=== PATIENT | male | born 1950 | race American Indian/Alaskan Native ===

== ENCOUNTER 2017-02-12 09:35 | Inpatient (IN) | payer MEDICARE ==
[2017-02-12] MEDS ORDERED: NACL 0.9% 500 ML 500 ML IV ONE (09:48)
[2017-02-12] MEDS ORDERED: TYLENOL PR ONE ×2 (09:53→09:58)
[2017-02-12 10:07] LABS: Basophils % (Auto) 0.5 % (0.0-1.8); Hematocrit 37.6 % (35.5-45.6); Hemoglobin 12.7 gm/dl (11.8-15.2); Mean Corpuscular HGB Conc 34 % (32-34); Mean Corpuscular Hemoglobin 32 pg (28-32); Mean Corpuscular Volume 94 fl (84-94); Platelet Count 193 K/mm3 (140-440); Red Blood Count 4.01 M/mm3 (3.65-5.03); White Blood Count 6.4 K/mm3 (4.5-11.0)
[2017-02-12 10:18] LABS: INR 1.41 (0.87-1.13)
[2017-02-12 10:30] LABS: Albumin 3.1 g/dL (3.9-5); Albumin/Globulin Ratio 0.8 %; Bilirubin,Total 0.7 mg/dL (0.1-1.2); Calcium 8.8 mg/dL (8.4-10.2); Chloride 109.8 mmol/L (98-107); Potassium 4.3 mmol/L (3.6-5.0); Total Protein 7.2 g/dL (6.3-8.2)
[2017-02-12 10:39] LABS: Bilirubin,Urine NEG (Negative); Blood,Urine LG (Negative); Ketones,Urine NEG (Negative); Leukocyte Esterase,Urine MOD (Negative); Nitrite,Urine NEG (Negative); Urobilinogen,Urine < 2.0 mg/dL (<2.0)
--- NOTE | 2017-02-12 10:41 | XRay Report ---
PORTABLE CHEST INDICATION: Possible sepsis. COMPARISON: 05/12/2016 FINDINGS: Portable, frontal chest radiograph now demonstrates right mid to lower lung approximately 8 cm pneumonia extending from the level of the hilum and infrahilar. Mild left retrocardiac hazy opacity also possible. No large pleural effusions or CHF. Mild exaggerated heart size with normal mediastinal contours. Slight aortic knob calcifications. EKG leads. Demineralized bones. CONCLUSION: New basilar pneumonias, right greater than left, as described. Please correlate. Thank you for the opportunity to participate in this patient's care.
[2017-02-12 10:42] LABS: RBC,Urine > 182.0 /HPF (0.0-6.0); WBC,Urine > 182.0 /HPF (0.0-6.0)
[2017-02-12] MEDS ORDERED: ROCEPHIN/NS 1 GM/50 ML 1 GM/50 ML BAG IV ONE (10:46)
[2017-02-12] MEDS ORDERED: ZOSYN/NS 4.5GM/100ML 4.5 GM/100 ML VIAL IV ONE ×2 (11:00→12:00)
[2017-02-12] MEDS ORDERED: LEVAQUIN 750MG/150ML 750 MG/150 ML BAG IV ONE ×2 (11:00→13:07)
--- NOTE | 2017-02-12 11:06 | Emergency Department Report ---
ED Fever HPI - General Chief Complaint: Altered Mental Status Stated Complaint: GENERAL WEAKNESS Time Seen by Provider: 02/12/17 10:16 Source: group home records, other (hospice nurse at the bedside) Exam Limitations: other (dementia) - History of Present Illness Initial Comments: 66 yo male with a past history of dementia (currently on hospice), hypertension , alcohol dependence, anxiety, and malnutrition presents from group home with fever and altered mental status. Patient was started on Bactrim yesterday for UTI and had worse breath sounds on exam as per hospice nurse at the bedside. Patient is unable to provide history of present illness given significant dementia. He does deny pain ED Review of Systems ROS: Stated complaint: GENERAL WEAKNESS Other details as noted in HPI Comment: Unobtainable due to pts medical conditions ED Past Medical Hx - Past Medical History Hx Hypertension: Yes Hx Psychiatric Treatment: Yes (ANXIETY) Hx Dementia: Yes Additional medical history: Alcohol dependence, DVT,ENCEPHALOPATHY, MALNUTRITION , DYSPHAGIA - Surgical History Additional Surgical History: left knee surgery - Social History Smoking Status: Unknown if ever smoked Substance Use Type: Alcohol - Medications Home Medications: Home Medications Medication Instructions Recorded Confirmed Last Taken Type Acetaminophen [Acetaminophen TAB] 650 mg PO Q4H PRN #30 tablet 05/15/16 Unknown Rx Bisacodyl [Dulcolax suppos] 10 mg [place] QDAY PRN #10 supp.rect 05/15/16 02/12/17 Unknown Rx Ipratropium/Albuterol Sulfate 1 ampul IH Q6HR #30 05/15/16 02/12/17 Unknown Rx [DUONEB *Not for PRN Use*] LORazepam [Ativan] 1 mg PO TID PRN #10 tablet 05/15/16 02/12/17 Unknown Rx Lisinopril [Zestril TAB] 10 mg PO QDAY #30 tablet 05/15/16 02/12/17 Unknown Rx Hyoscyamine Sulfate [Hyoscyamine 0.125 mg PO Q4HR PRN 02/12/17 02/12/17 Unknown History Rapdis 0.125 mg] Morphine Sulfate [Morphine Sulfate] 0.5 ml PO Q2H PRN 02/12/17 02/12/17 Unknown History Morphine Sulfate [Morphine Sulfate] 1 ml PO Q2H PRN 02/12/17 02/12/17 Unknown History Sulfamethoxazole/Trimethoprim 1 tab PO BID 02/12/17 02/12/17 Unknown History [Bactrim DS TAB] ED Physical Exam - General Limitations: Altered Mental Status - Other Other exam information: General: Alert in no distress Head exam: Atraumatic, normocephalic Eyes exam: Normal appearance, ENT: dry mucous membrane Neck exam: Normal inspection, full range of motion, no meningismus nontender Respiratory exam: Clear to auscultation bilateral, no wheezes, rales, crackles Cardiovascular: Mild tachycardia regular rhythm Abdomen: Soft, nondistended, and nontender, with normal bowel sounds, no rebound, or guarding Extremity: Full range of motion normal inspection no deformity Back: Normal Inspection, full range of motion, no tenderness Neurologic: Alert, no facial droop, minimally verbal,, equal hand grapple operator and foot dorsiflexed Skin: Warm, dry ED Course Vital Signs 02/12/17 02/12/17 02/12/17 09:39 09:40 09:45 Temperature Pulse Rate 120 H 119 H 116 H Respiratory 26 H 33 H Rate Blood Pressure 107/66 113/70 Blood Pressure [Left] O2 Sat by Pulse 100 79 L 98 Oximetry 02/12/17 02/12/17 02/12/17 09:52 10:00 10:11 Temperature 102.2 F H Pulse Rate 104 H 120 H Respiratory 28 H Rate Blood Pressure 120/70 Blood Pressure [Left] O2 Sat by Pulse 83 L Oximetry 02/12/17 02/12/17 02/12/17 10:15 10:30 10:45 Temperature Pulse Rate 104 H 106 H 106 H Respiratory 28 H 26 H 23 Rate Blood Pressure 122/77 124/72 122/74 Blood Pressure [Left] O2 Sat by Pulse 63 L 97 Oximetry 02/12/17 02/12/17 02/12/17 11:00 11:15 11:30 Temperature Pulse Rate 108 H 107 H 111 H Respiratory 23 24 20 Rate Blood Pressure 114/69 109/71 107/68 Blood Pressure [Left] O2 Sat by Pulse 51 L 98 100 Oximetry 02/12/17 02/12/17 02/12/17 11:44 11:45 12:00 Temperature Pulse Rate 109 H 108 H Respiratory 20 25 H 24 Rate Blood Pressure 97/66 94/63 Blood Pressure [Left] O2 Sat by Pulse 100 99 Oximetry 02/12/17 02/12/1702/12/17 12:15 12:30 12:45 Temperature Pulse Rate 109 H 101 H 94 H Respiratory 25 H 42 H 20 Rate Blood Pressure 100/62 107/61 93/59 Blood Pressure [Left] O2 Sat by Pulse 100 100 Oximetry 02/12/17 02/12/17 02/12/17 13:00 13:15 13:18 Temperature 98.1 F Pulse Rate 100 H 100 H 106 H Respiratory 22 24 21 Rate Blood Pressure 114/67 110/64 Blood Pressure 110/67 [Left] O2 Sat by Pulse 100 98 Oximetry - Consultations Consultation #1: 02/12/17 11:[address] Iqbal patient's PMD. Will consult on case. Requests admission to the hospitalist. ED Medical Decision Making - Lab Data Result diagrams: 02/12/17 09:53 02/12/17 09:53 Lab Results 02/12/17 02/12/17 02/12/17 Range/Units 09:50 09:53 09:53 WBC 6.4 (4.5-11.0) K/mm3 RBC 4.01 (3.65-5.03) M/mm3 Hgb 12.7 (11.8-15.2) gm/dl Hct 37.6 (35.5-45.6) % MCV 94 (84-94) fl MCH 32 (28-32) pg MCHC 34 (32-34) % RDW 15.0 (13.2-15.2) % Plt Count 193 (140-440) K/mm3 Lymph % (Auto) 23.5 (13.4-35.0) % [place] % (Auto) 3.8 (0.0-7.3) % Eos % (Auto) 0.0 (0.0-4.3) % Baso % (Auto) 0.5 (0.0-1.8) % Lymph # 1.5 (1.2-5.4) K/mm3 [place] # 0.2 (0.0-0.8) K/mm3 Eos # 0.0 (0.0-0.4) K/mm3 Baso # 0.0 (0.0-0.1) K/mm3 Seg Neutrophils % 72.2 H (40.0-70.0) % Seg Neutrophils # 4.6 (1.8-7.7) K/mm3 PT 18.0 H (12.2-14.9) Sec. INR 1.41 H (0.87-1.13) VBG pH (7.320-7.420) Sodium (137-145) mmol/L Potassium (3.6-5.0) mmol/L Chloride (98-107) mmol/L Carbon Dioxide (22-30) mmol/L Anion Gap mmol/L BUN (9-20) mg/dL Creatinine (0.8-1.5) mg/dL Estimated GFR ml/min BUN/Creatinine Ratio % Glucose (75-100) mg/dL Lactic Acid (0.7-2.0) mmol/L Calcium (8.4-10.2) mg/dL Total Bilirubin (0.1-1.2) mg/dL AST (5-40) units/L ALT (7-56) units/L Alkaline Phosphatase (35-129) units/L Total Protein (6.3-8.2) g/dL Albumin (3.9-5) g/dL Albumin/Globulin Ratio % Urine Color Red (Yellow) Urine Turbidity Cloudy (Clear) Urine pH 8.0 H (5.0-7.0) Ur Specific [place] 1.021 (1.003-1.030) Urine Protein 100 mg/dl (Negative) mg/dL Urine Glucose (UA) Neg (Negative) mg/dL Urine Ketones Neg (Negative) mg/dL Urine Blood Lg (Negative) Urine Nitrite Neg (Negative) Urine Bilirubin Neg (Negative) Urine Urobilinogen < 2.0 (<2.0) mg/dL Ur Leukocyte Esterase Mod (Negative) Urine WBC (Auto) > 182.0 H (0.0-6.0) /HPF Urine RBC (Auto) > 182.0 (0.0-6.0) /HPF 02/12/17 02/12/17 02/12/17 Range/Units 09:53 09:53 09:53 WBC (4.5-11.0) K/mm3 RBC (3.65-5.03) M/mm3 Hgb (11.8-15.2) gm/dl Hct (35.5-45.6) % MCV (84-94) fl MCH (28-32) pg MCHC (32-34) % RDW (13.2-15.2) % Plt Count (140-440) K/mm3 Lymph % (Auto) (13.4-35.0) % [place] % (Auto) (0.0-7.3) % Eos % (Auto) (0.0-4.3) % Baso % (Auto) (0.0-1.8) % Lymph # (1.2-5.4) K/mm3 [place] # (0.0-0.8) K/mm3 Eos # (0.0-0.4) K/mm3 Baso # (0.0-0.1) K/mm3 Seg Neutrophils % (40.0-70.0) % Seg Neutrophils # (1.8-7.7) K/mm3 PT (12.2-14.9) Sec. INR (0.87-1.13) VBG pH 7.335 (7.320-7.420) Sodium 147 H (137-145) mmol/L Potassium 4.3 (3.6-5.0) mmol/L Chloride 109.8 H (98-107) mmol/L Carbon Dioxide 23 (22-30) mmol/L Anion Gap 19 mmol/L BUN 27 H (9-20) mg/dL Creatinine 1.5 (0.8-1.5) mg/dL Estimated GFR 57 ml/min BUN/Creatinine Ratio 18.00 % Glucose 126 H (75-100) mg/dL Lactic Acid 3.00 H* (0.7-2.0) mmol/L Calcium 8.8 (8.4-10.2) mg/dL Total Bilirubin 0.70 (0.1-1.2) mg/dL AST 13 (5-40) units/L ALT 10 (7-56) units/L Alkaline Phosphatase 84 (35-129) units/L Total Protein 7.2 (6.3-8.2) g/dL Albumin 3.1 L (3.9-5) g/dL Albumin/Globulin Ratio 0.8 % Urine Color (Yellow) Urine Turbidity (Clear) Urine pH (5.0-7.0) Ur Specific [place] (1.003-1.030) Urine Protein (Negative) mg/dL Urine Glucose (UA) (Negative) mg/dL Urine Ketones (Negative) mg/dL Urine Blood (Negative) Urine Nitrite (Negative) Urine Bilirubin (Negative) Urine Urobilinogen (<2.0) mg/dL Ur Leukocyte Esterase (Negative) Urine WBC (Auto) (0.0-6.0) /HPF Urine RBC (Auto) (0.0-6.0) /HPF - EKG Data -: EKG Interpreted by Me (sinus tach rat 103, no semi, no t inv, ant infarct) - EKG Data When compared to previous EKG there are: no significant change (04/2016) - Radiology Data Radiology results: report reviewed (chest x-ray: No bibasilar pneumonias. Right greater than left) - Medical Decision Making Plan to admit patient to hospital for treatment for UTI and pneumonia. Zosyn and Levaquin initiated. Cultures pending. PMD and hospitalist informed - Differential Diagnosis pneumonia, UTI, sepsis, cephalopathy Critical Care Time: No Critical care attestation.: If time is entered above; I have spent that time in minutes in the direct care of this critically ill patient, excluding procedure time. ED Disposition Clinical Impression: UTI (urinary tract infection), Pneumonia, Dementia, Dehydration, Renal insufficiency, Hospice care patient, Sepsis Disposition: [id number] OP ADMIT IP TO THIS HOSP Is pt being admited?: Yes Condition: Stable Time of Disposition: 11:05 (Dr Shay/hosp)
--- NOTE | 2017-02-12 18:45 | History and Physical Report ---
History of Present Illness Date of examination: 02/12/17 Date of admission: 02/12/17 11:17 Chief complaint: 02/12/17 History of present illness: 66 y/o AAM sent from [place] for fever and Altered mental status .Patient with history of HTn and dementia on inpatient hospice with fever of 1 day duration associated with dysuria and incresing sob.Associated with wheezing.Poor PO intake.Parient also very lethargic. No exacerbating or relieving factors. Past History Past Medical History: COPD, hypertension, other (Dysphagia LATISHA Malnutrition) Past Surgical History: Other (L knee surgery) Social history: alcohol abuse, full code, other (Lives in [place] under Hospice) Family history: hypertension Medications and Allergies Allergies Allergy/AdvReac Type Severity Reaction Status Date / Time cheese AdvReac Vomiting Verified 09/25/15 09:41 Home Medications Medication Instructions Recorded Confirmed Last Taken Type Acetaminophen [Acetaminophen TAB] 650 mg PO Q4H PRN #30 tablet 05/15/16 Unknown Rx Bisacodyl [Dulcolax suppos] 10 mg [place] QDAY PRN #10 supp.rect 05/15/16 02/12/17 Unknown Rx Ipratropium/Albuterol Sulfate 1 ampul IH Q6HR #30 05/15/16 02/12/17 Unknown Rx [DUONEB *Not for PRN Use*] LORazepam [Ativan] 1 mg PO TID PRN #10 tablet 05/15/16 02/12/17 Unknown Rx Lisinopril [Zestril TAB] 10 mg PO QDAY #30 tablet 05/15/16 02/12/17 Unknown Rx Hyoscyamine Sulfate [Hyoscyamine 0.125 mg PO Q4HR PRN 02/12/17 02/12/17 Unknown History Rapdis 0.125 mg] Morphine Sulfate [Morphine Sulfate] 0.5 ml PO Q2H PRN 02/12/17 02/12/17 Unknown History Morphine Sulfate [Morphine Sulfate] 1 ml PO Q2H PRN 02/12/17 02/12/17 Unknown History Sulfamethoxazole/Trimethoprim 1 tab PO BID 02/12/17 02/12/17 Unknown History [Bactrim DS TAB] Review of Systems Constitutional: weight loss, fever Ears, nose, mouth and throat: dysphagia, no ear pain, no ear discharge, no tinnitis, no decreased hearing, no nose pain, no nasal congestion, no nasal discharge, no sinus pressure, no sinus pain Cardiovascular: no chest pain, no orthopnea, no palpitations, no rapid/ irregular heart beat, no edema, no syncope, no lightheadedness, no shortness of breath Respiratory: cough, cough with sputum Gastrointestinal: no abdominal pain, no nausea, no vomiting, no diarrhea, no constipation, no change in bowel habits, no hematemesis, no coffee ground emesis Genitourinary Male: dysuria, no discharge, no urinary frequency, no urinary hesitancy, no nocturia, no incontinence, no erectile dysfunction, no genital pain Musculoskeletal: no neck stiffness, no neck pain, no shooting arm pain, no arm numbness/tingling, no low back pain, no shooting leg pain, no leg numbness/ tingling, no redness of joints Integumentary: no rash, no pruritis, no redness, no wounds, no jaundice, no boils, no blisters Neurological: no head injury, no seizures, no syncope Psychiatric: anxiety, memory loss Endocrine: no cold intolerance, no heat intolerance, no polyphagia, no excessive thirst Hematologic/Lymphatic: no easy bruising, no easy bleeding Allergic/Immunologic: no urticaria, no allergic rhinitis, no wheezing Exam - Constitutional Vitals: Temp Pulse Resp BP Pulse Ox 99.8 F H 106 H 18 105/59 100 02/12/17 18:00 02/12/17 18:00 02/12/17 18:00 02/12/17 18:00 02/12/17 18:00 General appearance: Present: no acute distress, well-nourished - EENT Eyes: Present: PERRL ENT: hearing intact, clear oral mucosa - Neck Neck: Present: supple, normal ROM - Respiratory Respiratory effort: normal Respiratory: bilateral: diminished, rhonchi - Cardiovascular Heart rate: 90 Rhythm: regular Heart Sounds: Present: S1 & S2. Absent: rub, click - Extremities Extremities: no ischemia, pulses intact, pulses symmetrical, No edema Peripheral Pulses: within normal limits - Abdominal General gastrointestinal: Present: soft, non-tender, non-distended, normal bowel sounds Male genitourinary: Present: normal - Rectal Rectal Exam: deferred - Integumentary Integumentary: Present: clear, warm, dry - Musculoskeletal Musculoskeletal: strength equal bilaterally, generalized weakness - Psychiatric Psychiatric: depressed, other (Lethargic) - Neurologic Neurologic: CNII-XII intact, moves all extremities - Allied Health Allied health notes reviewed: nursing Results - Labs CBC & Chem 7: 02/12/17 09:53 02/12/17 09:53 Labs: Laboratory Last Values WBC 6.4 K/mm3 (4.5-11.0) 02/12/17 09:53 RBC 4.01 M/mm3 (3.65-5.03) 02/12/17 09:53 Hgb 12.7 gm/dl (11.8-15.2) 02/12/17 09:53 Hct 37.6 % (35.5-45.6) 02/12/17 09:53 MCV 94 fl (84-94) 02/12/17 09:53 MCH 32 pg (28-32) 02/12/17 09:53 MCHC 34 % (32-34) 02/12/17 09:53 RDW 15.0 % (13.2-15.2) 02/12/17 09:53 Plt Count 193 K/mm3 (140-440) 02/12/17 09:53 Lymph % (Auto) 23.5 % (13.4-35.0) 02/12/17 09:53 [place] % (Auto) 3.8 % (0.0-7.3) 02/12/17 09:53 Eos % (Auto) 0.0 % (0.0-4.3) 02/12/17 09:53 Baso % (Auto) 0.5 % (0.0-1.8) 02/12/17 09:53 Lymph # 1.5 K/mm3 (1.2-5.4) 02/12/17 09:53 [place] # 0.2 K/mm3 (0.0-0.8) 02/12/17 09:53 Eos # 0.0 K/mm3 (0.0-0.4) 02/12/17 09:53 Baso # 0.0 K/mm3 (0.0-0.1) 02/12/17 09:53 Seg Neutrophils % 72.2 % (40.0-70.0) H 02/12/17 09:53 Seg Neutrophils # 4.6 K/mm3 (1.8-7.7) 02/12/17 09:53 PT 18.0 Sec. (12.2-14.9) H 02/12/17 09:53 INR 1.41 (0.87-1.13) H 02/12/17 09:53 VBG pH 7.335 (7.320-7.420) 02/12/17 09:53 Sodium 147 mmol/L (137-145) H 02/12/17 09:53 Potassium 4.3 mmol/L (3.6-5.0) 02/12/17 09:53 Chloride 109.8 mmol/L (98-107) H 02/12/17 09:53 Carbon Dioxide 23 mmol/L (22-30) 02/12/17 09:53 Anion Gap 19 mmol/L 02/12/17 09:53 BUN 27 mg/dL (9-20) H 02/12/17 09:53 Creatinine 1.5 mg/dL (0.8-1.5) 02/12/17 09:53 Estimated GFR 57 ml/min 02/12/17 09:53 BUN/Creatinine Ratio 18.00 % 02/12/17 09:53 Glucose 126 mg/dL (75-100) H 02/12/17 09:53 Lactic Acid 3.10 mmol/L (0.7-2.0) H* 02/12/17 12:27 Calcium 8.8 mg/dL (8.4-10.2) 02/12/17 09:53 Total Bilirubin 0.70 mg/dL (0.1-1.2) 02/12/17 09:53 AST 13 units/L (5-40) 02/12/17 09:53 ALT 10 units/L (7-56) 02/12/17 09:53 Alkaline Phosphatase 84 units/L (35-129) 02/12/17 09:53 Total Protein 7.2 g/dL (6.3-8.2) 02/12/17 09:53 Albumin 3.1 g/dL (3.9-5) L 02/12/17 09:53 Albumin/Globulin Ratio 0.8 % 02/12/17 09:53 Urine Color Red (Yellow) 02/12/17 09:50 Urine Turbidity Cloudy (Clear) 02/12/17 09:50 Urine pH 8.0 (5.0-7.0) H 02/12/17 09:50 Ur Specific [place] 1.021 (1.003-1.030) 02/12/17 09:50 Urine Protein 100 mg/dl mg/dL (Negative) 02/12/17 09:50 Urine Glucose (UA) Neg mg/dL (Negative) 02/12/17 09:50 Urine Ketones Neg mg/dL (Negative) 02/12/17 09:50 Urine Blood Lg (Negative) 02/12/17 09:50 Urine Nitrite Neg (Negative) 02/12/17 09:50 Urine Bilirubin Neg (Negative) 02/12/17 09:50 Urine Urobilinogen < 2.0 mg/dL (<2.0) 02/12/17 09:50 Ur Leukocyte Esterase Mod (Negative) 02/12/17 09:50 Urine WBC (Auto) > 182.0 /HPF (0.0-6.0) H 02/12/17 09:50 Urine RBC (Auto) > 182.0 /HPF (0.0-6.0) 02/12/17 09:50 Short CBC 02/12/17 Range/Units 09:53 WBC 6.4 (4.5-11.0) K/mm3 Hgb 12.7 (11.8-15.2) gm/dl Hct 37.6 (35.5-45.6) % Plt Count 193 (140-440) K/mm3 BMP 02/12/17 09:53 Sodium 147 H Potassium 4.3 Chloride 109.8 H Carbon Dioxide 23 BUN 27 H Creatinine 1.5 Glucose 126 H Calcium 8.8 Liver Function 02/12/17 Range/Units 09:53 Total Bilirubin 0.70 (0.1-1.2) mg/dL AST 13 (5-40) units/L ALT 10 (7-56) units/L Alkaline Phosphatase 84 (35-129) units/L Albumin 3.1 L (3.9-5) g/dL Urine 02/12/17 Range/Units 09:50 Urine Color Red (Yellow) Urine pH 8.0 H (5.0-7.0) Ur Specific [place] 1.021 (1.003-1.030) Urine Protein 100 mg/dl (Negative) mg/dL Urine Glucose (UA) Neg (Negative) mg/dL - Imaging and Cardiology EKG: report reviewed Chest x-ray: report reviewed (Bibasilar pneumonia) Assessment and Plan Advance Directives: Yes (DNR) VTE prophylaxis?: Chemical Plan of care discussed with patient/family: Yes - Patient Problems (1) Aspiration pneumonia Current Visit: Yes Status: Acute Qualifiers: Aspiration pneumonia type: A Laterality: bilateral Lung location: L Plan to address problem: Patient initiated on IV Zosyn and Vancomycin Aspiration PNA sec to Dysphagia (2) UTI (urinary tract infection) Current Visit: Yes Status: Acute Qualifiers: Urinary tract infection type: acute cystitis Hematuria presence: H Indwelling urinary catheter type: I Encounter type: E Plan to address problem: Patient onZosyn and Vanc which should cross cover the UTI (3) Dysphagia Current Visit: Yes Status: Chronic Qualifiers: Dysphagia type: unspecified Qualified Code(s): R13.10 - Dysphagia, unspecified Plan to address problem: Swallow eval and treat (4) JACIEL (acute kidney injury) Current Visit: Yes Status: Resolved Plan to address problem: Sec to Vasomotor nephropathy and volume depletion IV fluids for now (5) Hypernatremia Current Visit: No Status: Acute Plan to address problem: IV D5w for now (6) COPD (chronic obstructive pulmonary disease) Current Visit: Yes Status: Chronic Qualifiers: COPD type: COPD with acute lower respiratory infection Chronic bronchitis type: C Emphysema type: E Qualified Code(s): J44.0 - Chronic obstructive pulmonary disease with acute lower respiratory infection Plan to address problem: Cont Duonebs (7) HTN (hypertension) Current Visit: Yes Status: Chronic Qualifiers: Hypertension type: essential hypertension Qualified Code(s): I10 - Essential (primary) hypertension Plan to address problem: Cont Lisinopril (8) Dehydration Current Visit: Yes Status: Acute (9) Hospice care patient Current Visit: Yes Status: Chronic Plan to address problem: Discharge to Hospice when stable (10) Malnutrition of moderate degree Current Visit: Yes Status: Acute Plan to address problem: Albumin of 3.1 andpatient cachectic.Dietary consult requested. (11) DVT prophylaxis Current Visit: Yes Status: Acute Plan to address problem: on lovenox
[2017-02-12] MEDS ORDERED: ZOFRAN IV PRN (18:47)
[2017-02-12] MEDS ORDERED: ATIVAN PO PRN (18:47)
[2017-02-12] MEDS ORDERED: NON-FORMULARY (Hyoscyamine Sulfate [Hyoscyamine Rapdis 0.125 Mg] 0.125 MG) PO PRN (18:47)
[2017-02-12] MEDS ORDERED: MORPHINE SULFATE PO PRN (18:47)
[2017-02-12] MEDS ORDERED: DULCOLAX PR PRN ×2 (18:47)
[2017-02-12] MEDS ORDERED: MILK OF MAGNESIA PO PRN (18:47)
[2017-02-12] MEDS ORDERED: TYLENOL PO PRN ×2 (18:47)
[2017-02-12] MEDS ORDERED: DILAUDID IV PRN (19:13)
[2017-02-12] MEDS ORDERED: LEVSIN SL PO PRN (19:17)
[2017-02-12] MEDS ORDERED: ROCEPHIN/NS 2 GM/100 ML 2 GM/100 ML BAG IV SCH (21:00)
[2017-02-12] MEDS: D5/0.45NS 1,000 ML IV SCH (21:04)
[2017-02-12] MEDS: DUONEB *Not for PRN Use IH SCH (21:59)
--- NOTE | 2017-02-12 23:24 | Consultation ---
History of Present Illness - Reason for Consult Consult date: 02/12/17 /co management. Requesting physician: GLENROY GREGORY - History of Present Illness Thank you for this consult, patient seen/examined, record reviewed, case d/w his family at the bed side.Transfered from the [place] [facility], dx with B/L PNA, and UTI. Past History Past Medical History: seizures Family history: no significant family history Medications and Allergies Allergies Allergy/AdvReac Type Severity Reaction Status Date / Time cheese AdvReac Vomiting Verified 09/25/15 09:41 Home Medications Medication Instructions Recorded Confirmed Last Taken Type Acetaminophen [Acetaminophen TAB] 650 mg PO Q4H PRN #30 tablet 05/15/16 Unknown Rx Bisacodyl [Dulcolax suppos] 10 mg [place] QDAY PRN #10 supp.rect 05/15/16 02/12/17 Unknown Rx Ipratropium/Albuterol Sulfate 1 ampul IH Q6HR #30 05/15/16 02/12/17 Unknown Rx [DUONEB *Not for PRN Use*] LORazepam [Ativan] 1 mg PO TID PRN #10 tablet 05/15/16 02/12/17 Unknown Rx Lisinopril [Zestril TAB] 10 mg PO QDAY #30 tablet 05/15/16 02/12/17 Unknown Rx Hyoscyamine Sulfate [Hyoscyamine 0.125 mg PO Q4HR PRN 02/12/17 02/12/17 Unknown History Rapdis 0.125 mg] Morphine Sulfate [Morphine Sulfate] 0.5 ml PO Q2H PRN 02/12/17 02/12/17 Unknown History Morphine Sulfate [Morphine Sulfate] 1 ml PO Q2H PRN 02/12/17 02/12/17 Unknown History Sulfamethoxazole/Trimethoprim 1 tab PO BID 02/12/17 02/12/17 Unknown History [Bactrim DS TAB] Active Meds: Active Medications Acetaminophen (Tylenol) 650 mg PO Q4H PRN PRN Reason: Pain MILD(1-3)/Fever >100.5/MCLAIN Albuterol/Ipratropium (Duoneb *Not For Prn Use*) 1 ampul IH Q6HRT MARTHA Last Admin: 02/12/17 21:59 Dose: 1 ampul Bisacodyl (Dulcolax) 10 mg [place] QDAY PRN PRN Reason: Constipation unrelieved by MOM Hydromorphone HCl (Dilaudid) 0.5 mg IV Q3H PRN PRN Reason: Pain , Severe (7-10) Hyoscyamine (Levsin Sl) 0.125 mg PO Q4HR PRN PRN Reason: increased secretions Dextrose/Sodium Chloride (D5/0.45ns) 1,000 mls @ 100 mls/hr IV DIRECT MARTHA Last Admin: 02/12/17 21:04 Dose: 100 mls/hr Ceftriaxone Sodium (Rocephin/Ns 2 Gm/100 Ml) 2 gm in 100 mls @ 200 mls/hr IV Q24H MARTHA PRN Reason: Protocol Last Admin: 02/12/17 22:26 Dose: 200 mls/hr Lisinopril (Zestril) 10 mg PO QDAY MARTHA Lorazepam (Ativan) 1 mg PO TID PRN PRN Reason: Agitation Magnesium Hydroxide (Milk Of Magnesia) 30 ml PO Q4H PRN PRN Reason: Constipation Ondansetron HCl (Zofran) 4 mg IV Q8H PRN PRN Reason: N/V unrelieved by Reglan Review of Systems Constitutional: fatigue, weakness Neurological: weakness, confusion, memory loss Exam - Constitutional Vitals: Temp Pulse Resp BP Pulse Ox 99.8 F H 100 H 15 105/59 97 02/12/17 18:00 02/12/17 22:00 02/12/17 21:58 02/12/17 18:00 02/12/17 21:52 General appearance: Present: mild distress - EENT Eyes: Present: PERRL ENT: hearing intact, clear oral mucosa - Neck Neck: Present: supple, normal ROM - Respiratory Respiratory effort: normal Respiratory: bilateral: rhonchi - Cardiovascular Heart Sounds: Present: S1 & S2. Absent: rub, click - Extremities Extremities: pulses symmetrical, No edema Peripheral Pulses: within normal limits - Abdominal General gastrointestinal: Present: soft, non-tender, non-distended, normal bowel sounds Male genitourinary: Present: deferred - Rectal Rectal Exam: deferred - Integumentary Integumentary: Present: clear, warm, dry - Musculoskeletal Musculoskeletal: generalized weakness Results - Labs CBC & Chem 7: 02/12/17 09:53 02/12/17 09:53 Labs: Abnormal lab results 02/12/17 Range/Units 12:27 Lactic Acid 3.10 H* (0.7-2.0) mmol/L Assessment and Plan - Patient Problems (1) Dementia Current Visit: Yes Status: Acute Qualifiers: Dementia type: D Alzheimer's disease onset: A Dementia behavioral disturbance: D Plan to address problem: supportive care. (2) Dehydration Current Visit: Yes Status: Acute Plan to address problem: HYDRATION (3) UTI (urinary tract infection) Current Visit: Yes Status: Acute Qualifiers: Urinary tract infection type: U Hematuria presence: H Indwelling urinary catheter type: I Encounter type: E Plan to address problem: IV ABX (4) Pneumonia Current Visit: Yes Status: Acute Qualifiers: Pneumonia type: P Aspiration pneumonia type: A Laterality: L Lung location: L Plan to address problem: IV ABX
[2017-02-13] MEDS ORDERED: DUONEB *Not for PRN Use IH SCH
[2017-02-13] MEDS: DUONEB *Not for PRN Use IH SCH ×4 (01:27→20:22)
[2017-02-13] MEDS ORDERED: VANCOMYCIN PHARMACY TO DOSE IV SCH (06:00)
[2017-02-13] MEDS: ZOSYN/NS 3.375GM/50ML 3.375 GM/50 ML BAG IV SCH ×3 (06:38→23:15)
[2017-02-13 06:42] LABS: Basophils % (Auto) 0.3 % (0.0-1.8); Eosinophils % (Auto) 0.2 % (0.0-4.3); Hematocrit 33.3 % (35.5-45.6); Hemoglobin 10.9 gm/dl (11.8-15.2); Mean Corpuscular HGB Conc 33 % (32-34); Mean Corpuscular Hemoglobin 32 pg (28-32); Mean Corpuscular Volume 96 fl (84-94); Platelet Count 165 K/mm3 (140-440); Red Blood Count 3.45 M/mm3 (3.65-5.03); Red Cell Distribution Width 15.3 % (13.2-15.2); White Blood Count 7.4 K/mm3 (4.5-11.0)
[2017-02-13 06:59] LABS: Anion Gap 15 mmol/L; Blood Urea Nitrogen 23 mg/dL (9-20); Calcium 8.5 mg/dL (8.4-10.2); Carbon Dioxide 22 mmol/L (22-30); Chloride 110.6 mmol/L (98-107); Glucose 105 mg/dL (75-100); Sodium 144 mmol/L (137-145)
[2017-02-13] MEDS ORDERED: VANCOMYCIN 1,750 MG in NACL 0.9% 500 ML 500 ML IV ONE (08:00)
[2017-02-13] MEDS: D5/0.45NS 1,000 ML IV SCH (09:07)
[2017-02-13] MEDS: ZESTRIL PO SCH (10:00)
[2017-02-13] MEDS: VANCOMYCIN/NS 1 GM/250 ML 1 GM/250 ML BAG IV SCH (11:18)
--- NOTE | 2017-02-13 15:06 | Fluoroscopy Report ---
MODIFIED BARIUM SWALLOW INDICATION: Dysphagia. COMPARISON: 05/14/2016. FINDINGS: Fluoroscopy with video provided by radiologist for speech therapist to assess the swallowing mechanism. Food items of various consistencies given. Penetration/aspiration noted. Edentulous jaw. IMPRESSION: Successful modified barium swallow. Please refer to detailed report from speech pathologist. Thank you for the opportunity to participate in this patient's care.
--- NOTE | 2017-02-13 16:40 | Progress Note ---
Assessment and Plan Assessment and plan: Sepsis due to pneumonia/UTI. Admitted to medical floor. started on iv antibiotics - Zosyn and Vancomycin. Aspiration Pneumonia bilateral. Swallow evaluation by speech Pathologist Toxic metabolic encephaloathy, with altered mental status. Urinary tract infection. Started on antibiotics. Urine culture COPD. This is stable Dementia Hypertension. Monitor BP. He is on Lisinopril Full code status Hospitalist Physical - Physical exam Narrative exam: Gen Appearance: Not in acute distress HEENT: normocephalic, atraumatic Neck: supple, no JVD Lungs: Clear to auscultation, bilaterally, no rales, no wheeze Heart: S1 and S2 regular, no murmurs, rubs or gallop Abdomen: Soft , non tender, non distended, normal bowel sounds Extremity: No edema, no clubbing or cyanosis, Neuro : Awake,alert, oriented x 3, moves all extremities - Constitutional Vitals: Temp Pulse Resp BP Pulse Ox 98.5 F 92 H 18 107/61 96 02/13/17 14:00 02/13/17 15:46 02/13/17 15:46 02/13/17 14:00 02/13/17 14:00 General appearance: Present: no acute distress, well-nourished Results - Labs CBC & Chem 7: 02/14/17 06:29 02/14/17 06:29 Labs: Laboratory Last Values WBC 7.4 K/mm3 (4.5-11.0) 02/13/17 05:49 RBC 3.45 M/mm3 (3.65-5.03) L 02/13/17 05:49 Hgb 10.9 gm/dl (11.8-15.2) L 02/13/17 05:49 Hct 33.3 % (35.5-45.6) L 02/13/17 05:49 MCV 96 fl (84-94) H 02/13/17 05:49 MCH 32 pg (28-32) 02/13/17 05:49 MCHC 33 % (32-34) 02/13/17 05:49 RDW 15.3 % (13.2-15.2) H 02/13/17 05:49 Plt Count 165 K/mm3 (140-440) 02/13/17 05:49 Lymph % (Auto) 20.0 % (13.4-35.0) 02/13/17 05:49 [place] % (Auto) 5.9 % (0.0-7.3) 02/13/17 05:49 Eos % (Auto) 0.2 % (0.0-4.3) 02/13/17 05:49 Baso % (Auto) 0.3 % (0.0-1.8) 02/13/17 05:49 Lymph # 1.5 K/mm3 (1.2-5.4) 02/13/17 05:49 [place] # 0.4 K/mm3 (0.0-0.8) 02/13/17 05:49 Eos # 0.0 K/mm3 (0.0-0.4) 02/13/17 05:49 Baso # 0.0 K/mm3 (0.0-0.1) 02/13/17 05:49 Seg Neutrophils % 73.6 % (40.0-70.0) H 02/13/17 05:49 Seg Neutrophils # 5.4 K/mm3 (1.8-7.7) 02/13/17 05:49 PT 18.0 Sec. (12.2-14.9) H 02/12/17 09:53 INR 1.41 (0.87-1.13) H 02/12/17 09:53 VBG pH 7.335 (7.320-7.420) 02/12/17 09:53 Sodium 144 mmol/L (137-145) 02/13/17 05:49 Potassium 4.0 mmol/L (3.6-5.0) 02/13/17 05:49 Chloride 110.6 mmol/L (98-107) H 02/13/17 05:49 Carbon Dioxide 22 mmol/L (22-30) 02/13/17 05:49 Anion Gap 15 mmol/L 02/13/17 05:49 BUN 23 mg/dL (9-20) H 02/13/17 05:49 Creatinine 1.0 mg/dL (0.8-1.5) 02/13/17 05:49 Estimated GFR > 60 ml/min 02/13/17 05:49 BUN/Creatinine Ratio 23.00 % 02/13/17 05:49 Glucose 105 mg/dL (75-100) H 02/13/17 05:49 Lactic Acid 3.10 mmol/L (0.7-2.0) H* 02/12/17 12:27 Calcium 8.5 mg/dL (8.4-10.2) 02/13/17 05:49 Total Bilirubin 0.70 mg/dL (0.1-1.2) 02/12/17 09:53 AST 13 units/L (5-40) 02/12/17 09:53 ALT 10 units/L (7-56) 02/12/17 09:53 Alkaline Phosphatase 84 units/L (35-129) 02/12/17 09:53 Total Protein 7.2 g/dL (6.3-8.2) 02/12/17 09:53 Albumin 3.1 g/dL (3.9-5) L 02/12/17 09:53 Albumin/Globulin Ratio 0.8 % 02/12/17 09:53 Urine Color Red (Yellow) 02/12/17 09:50 Urine Turbidity Cloudy (Clear) 02/12/17 09:50 Urine pH 8.0 (5.0-7.0) H 02/12/17 09:50 Ur Specific [place] 1.021 (1.003-1.030) 02/12/17 09:50 Urine Protein 100 mg/dl mg/dL (Negative) 02/12/17 09:50 Urine Glucose (UA) Neg mg/dL (Negative) 02/12/17 09:50 Urine Ketones Neg mg/dL (Negative) 02/12/17 09:50 Urine Blood Lg (Negative) 02/12/17 09:50 Urine Nitrite Neg (Negative) 02/12/17 09:50 Urine Bilirubin Neg (Negative) 02/12/17 09:50 Urine Urobilinogen < 2.0 mg/dL (<2.0) 02/12/17 09:50 Ur Leukocyte Esterase Mod (Negative) 02/12/17 09:50 Urine WBC (Auto) > 182.0 /HPF (0.0-6.0) H 02/12/17 09:50 Urine RBC (Auto) > 182.0 /HPF (0.0-6.0) 02/12/17 09:50
--- NOTE | 2017-02-14 00:01 | Progress Note ---
Assessment and Plan - Patient Problems (1) Dementia Current Visit: Yes Status: Acute Qualifiers: Dementia type: vascular dementia Alzheimer's disease onset: A Dementia behavioral disturbance: D Plan to address problem: supportive care. (2) Dehydration Current Visit: Yes Status: Acute Plan to address problem: HYDRATION (3) UTI (urinary tract infection) Current Visit: Yes Status: Acute Qualifiers: Urinary tract infection type: acute cystitis Hematuria presence: H Indwelling urinary catheter type: I Encounter type: E Plan to address problem: IV ABX (4) Pneumonia Current Visit: Yes Status: Acute Qualifiers: Pneumonia type: P Aspiration pneumonia type: A Laterality: L Lung location: L Plan to address problem: IV ABX (5) Anemia Current Visit: Yes Status: Acute Qualifiers: Anemia type: A Iron deficiency anemia type: I Vitamin B12 deficiency anemia type: V Folate deficiency anemia type: F Bone marrow failure anemia type: B Hemolytic anemia type: H Other causes of anemia: O Chronic kidney disease stage: C Plan to address problem: OF CD, monitor labs. (6) Sepsis Current Visit: Yes Status: Acute Qualifiers: Sepsis type: S Plan to address problem: Continue with IV abx. This is due ti UTI/PNEumonia. Subjective Date of service: 02/13/17 Principal diagnosis: uti/pneumonia. Interval history: patient seen/examined, ,trashing around/aggitated.. Objective - Constitutional Vitals: Vital Signs - 12hr 02/13/17 02/13/17 02/13/17 14:00 15:00 15:46 Temperature 98.5 F Pulse Rate 103 H Pulse Rate [ 98 H 92 H Posterior Bilateral Throughout] Respiratory 18 Rate Respiratory 16 18 Rate [Posterior Bilateral Throughout] Blood Pressure 107/61 [Left] O2 Sat by Pulse 96 Oximetry 02/13/17 02/13/17 02/13/17 20:00 20:36 20:40 Temperature 99.1 F Pulse Rate 90 Pulse Rate [ 103 H Posterior Bilateral Throughout] Respiratory 18 Rate Respiratory 18 Rate [Posterior Bilateral Throughout] Blood Pressure 132/72 [Left] O2 Sat by Pulse 99 93 Oximetry 02/13/17 20:47 Temperature Pulse Rate Pulse Rate [ Posterior Bilateral Throughout] Respiratory Rate Respiratory Rate [Posterior Bilateral Throughout] Blood Pressure [Left] O2 Sat by Pulse 97 Oximetry General appearance: Present: mild distress, well-nourished - EENT Eyes: PERRL, EOM intact ENT: hearing intact, clear oral mucosa Ears: bilateral: normal - Neck Neck: supple, normal ROM - Respiratory Respiratory effort: normal Respiratory: bilateral: CTA - Cardiovascular Rhythm: regular Heart Sounds: Present: S1 & S2. Absent: gallop, rub Extremities: pulses intact, No edema, normal color, Full ROM - Gastrointestinal General gastrointestinal: Present: soft, non-tender, non-distended, normal bowel sounds Rectal Exam: deferred - Genitourinary Male genitourinary: deferred - Integumentary Integumentary: clear, warm, dry - Musculoskeletal Musculoskeletal: 1, strength equal bilaterally - Neurologic Neurologic: moves all extremities - Labs CBC & Chem 7: 02/13/17 05:49 02/13/17 05:49 Labs: Abnormal lab results 02/13/17 02/13/17 Range/Units 05:49 05:49 RBC 3.45 L (3.65-5.03) M/mm3 Hgb 10.9 L (11.8-15.2) gm/dl Hct 33.3 L (35.5-45.6) % MCV 96 H (84-94) fl RDW 15.3 H (13.2-15.2) % Seg Neutrophils % 73.6 H (40.0-70.0) % Chloride 110.6 H (98-107) mmol/L BUN 23 H (9-20) mg/dL Glucose 105 H (75-100) mg/dL
[2017-02-14] MEDS: DUONEB *Not for PRN Use IH SCH ×4 (03:28→21:00)
[2017-02-14] MEDS: ZOSYN/NS 3.375GM/50ML 3.375 GM/50 ML BAG IV SCH ×3 (05:56→21:40)
[2017-02-14] MEDS: D5/0.45NS 1,000 ML IV SCH ×2 (05:57→21:37)
[2017-02-14 07:50] LABS: Hematocrit 31.5 % (35.5-45.6); Hemoglobin 10.4 gm/dl (11.8-15.2); Mean Corpuscular HGB Conc 33 % (32-34); Mean Corpuscular Hemoglobin 31 pg (28-32); Mean Corpuscular Volume 95 fl (84-94); Platelet Count 164 K/mm3 (140-440); Red Blood Count 3.32 M/mm3 (3.65-5.03); Red Cell Distribution Width 15.1 % (13.2-15.2); White Blood Count 5.6 K/mm3 (4.5-11.0)
[2017-02-14 07:51] LABS: Anion Gap 15 mmol/L; BUN/Creatinine Ratio 17.14; Blood Urea Nitrogen 12 mg/dL (9-20); Calcium 8.4 mg/dL (8.4-10.2); Carbon Dioxide 22 mmol/L (22-30); Chloride 106.4 mmol/L (98-107); Glucose 99 mg/dL (75-100); Potassium 3.2 mmol/L (3.6-5.0); Sodium 140 mmol/L (137-145)
[2017-02-14] MEDS ORDERED: VANCOMYCIN 1,250 MG in NACL 0.9% 250ML 250 ML IV SCH (08:00)
[2017-02-14] MEDS ORDERED: POTASSIUM CHLORIDE PO ONE (08:38)
--- NOTE | 2017-02-14 08:41 | Progress Note ---
Assessment and Plan Assessment and plan: Sepsis due to pneumonia/UTI. Admitted to medical floor. Continue Zosyn and Vancomycin. Aspiration Pneumonia bilateral. Swallow evaluation done by speech Pathologist and she recommends pureed diet. Toxic metabolic encephaloathy, with altered mental status. Urinary tract infection. Started on antibiotics. Urine cultures ordered COPD. This is stable Dementia Hypertension. Monitor BP. He is on Lisinopril Full code status Will discharge back to hospice when stable, likely in 1-2 days. History Interval history: Still confused Hospitalist Physical - Physical exam Narrative exam: Gen Appearance: Not in acute distress,malnourished HEENT: normocephalic, atraumatic Neck: supple, no JVD Lungs: Clear to auscultation, bilaterally, no rales, no wheeze Heart: S1 and S2 regular, no murmurs, rubs or gallop Abdomen: Soft , non tender, non distended, normal bowel sounds Extremity: No edema, no clubbing or cyanosis, Neuro : Confused - Constitutional Vitals: Temp Pulse Resp BP Pulse Ox 98.7 F 82 18 121/61 99 02/14/17 04:33 02/14/17 04:33 02/14/17 04:33 02/14/17 04:33 02/14/17 04:33 General appearance: Present: mild distress, well-nourished Results - Labs CBC & Chem 7: 02/14/17 06:29 02/14/17 06:29 Labs: Laboratory Last Values WBC 5.6 K/mm3 (4.5-11.0) 02/14/17 06:29 RBC 3.32 M/mm3 (3.65-5.03) L 02/14/17 06:29 Hgb 10.4 gm/dl (11.8-15.2) L 02/14/17 06:29 Hct 31.5 % (35.5-45.6) L 02/14/17 06:29 MCV 95 fl (84-94) H 02/14/17 06:29 MCH 31 pg (28-32) 02/14/17 06:29 MCHC 33 % (32-34) 02/14/17 06:29 RDW 15.1 % (13.2-15.2) 02/14/17 06:29 Plt Count 164 K/mm3 (140-440) 02/14/17 06:29 Lymph % (Auto) 20.0 % (13.4-35.0) 02/13/17 05:49 [place] % (Auto) 5.9 % (0.0-7.3) 02/13/17 05:49 Eos % (Auto) 0.2 % (0.0-4.3) 02/13/17 05:49 Baso % (Auto) 0.3 % (0.0-1.8) 02/13/17 05:49 Lymph # 1.5 K/mm3 (1.2-5.4) 02/13/17 05:49 [place] # 0.4 K/mm3 (0.0-0.8) 02/13/17 05:49 Eos # 0.0 K/mm3 (0.0-0.4) 02/13/17 05:49 Baso # 0.0 K/mm3 (0.0-0.1) 02/13/17 05:49 Seg Neutrophils % 73.6 % (40.0-70.0) H 02/13/17 05:49 Seg Neutrophils # 5.4 K/mm3 (1.8-7.7) 02/13/17 05:49 PT 18.0 Sec. (12.2-14.9) H 02/12/17 09:53 INR 1.41 (0.87-1.13) H 02/12/17 09:53 VBG pH 7.335 (7.320-7.420) 02/12/17 09:53 Sodium 140 mmol/L (137-145) 02/14/17 06:29 Potassium 3.2 mmol/L (3.6-5.0) L 02/14/17 06:29 Chloride 106.4 mmol/L (98-107) 02/14/17 06:29 Carbon Dioxide 22 mmol/L (22-30) 02/14/17 06:29 Anion Gap 15 mmol/L 02/14/17 06:29 BUN 12 mg/dL (9-20) 02/14/17 06:29 Creatinine 0.7 mg/dL (0.8-1.5) L 02/14/17 06:29 Estimated GFR > 60 ml/min 02/14/17 06:29 BUN/Creatinine Ratio 17.14 % 02/14/17 06:29 Glucose 99 mg/dL (75-100) 02/14/17 06:29 Lactic Acid 3.10 mmol/L (0.7-2.0) H* 02/12/17 12:27 Calcium 8.4 mg/dL (8.4-10.2) 02/14/17 06:29 Total Bilirubin 0.70 mg/dL (0.1-1.2) 02/12/17 09:53 AST 13 units/L (5-40) 02/12/17 09:53 ALT 10 units/L (7-56) 02/12/17 09:53 Alkaline Phosphatase 84 units/L (35-129) 02/12/17 09:53 Total Protein 7.2 g/dL (6.3-8.2) 02/12/17 09:53 Albumin 3.1 g/dL (3.9-5) L 02/12/17 09:53 Albumin/Globulin Ratio 0.8 % 02/12/17 09:53 Vitamin B12 300.5 pg/mL (211-911) 02/14/17 04:48 Urine Color Red (Yellow) 02/12/17 09:50 Urine Turbidity Cloudy (Clear) 02/12/17 09:50 Urine pH 8.0 (5.0-7.0) H 02/12/17 09:50 Ur Specific [place] 1.021 (1.003-1.030) 02/12/17 09:50 Urine Protein 100 mg/dl mg/dL (Negative) 02/12/17 09:50 Urine Glucose (UA) Neg mg/dL (Negative) 02/12/17 09:50 Urine Ketones Neg mg/dL (Negative) 02/12/17 09:50 Urine Blood Lg (Negative) 02/12/17 09:50 Urine Nitrite Neg (Negative) 02/12/17 09:50 Urine Bilirubin Neg (Negative) 02/12/17 09:50 Urine Urobilinogen < 2.0 mg/dL (<2.0) 02/12/17 09:50 Ur Leukocyte Esterase Mod (Negative) 02/12/17 09:50 Urine WBC (Auto) > 182.0 /HPF (0.0-6.0) H 02/12/17 09:50 Urine RBC (Auto) > 182.0 /HPF (0.0-6.0) 02/12/17 09:50
[2017-02-14] MEDS: VANCOMYCIN/NS 1 GM/250 ML 1 GM/250 ML BAG IV SCH (09:10)
[2017-02-14] MEDS: ZESTRIL PO SCH (09:15)
[2017-02-14] MEDS: LOVENOX SUB-Q SCH (21:40)
--- NOTE | 2017-02-14 23:25 | Progress Note ---
Assessment and Plan - Patient Problems (1) Dementia Current Visit: Yes Status: Acute Qualifiers: Dementia type: vascular dementia Alzheimer's disease onset: A Dementia behavioral disturbance: D Plan to address problem: supportive care. (2) Dehydration Current Visit: Yes Status: Acute Plan to address problem: HYDRATION (3) UTI (urinary tract infection) Current Visit: Yes Status: Acute Qualifiers: Urinary tract infection type: acute cystitis Hematuria presence: H Indwelling urinary catheter type: I Encounter type: E Plan to address problem: IV ABX (4) Pneumonia Current Visit: Yes Status: Acute Qualifiers: Pneumonia type: P Aspiration pneumonia type: A Laterality: L Lung location: L Plan to address problem: IV ABX (5) Anemia Current Visit: Yes Status: Acute Qualifiers: Anemia type: A Iron deficiency anemia type: I Vitamin B12 deficiency anemia type: V Folate deficiency anemia type: F Bone marrow failure anemia type: B Hemolytic anemia type: H Other causes of anemia: O Chronic kidney disease stage: C Plan to address problem: OF CD, monitor labs. (6) Sepsis Current Visit: Yes Status: Acute Qualifiers: Sepsis type: S Plan to address problem: Continue with IV abx. This is due ti UTI/PNEumonia. Subjective Date of service: 02/14/17 Principal diagnosis: uti/pneumonia. Interval history: patient seen/examined, ,trashing around/agitated.. Patient seen/examined, resting in bed, labs reviewed.No agitation tonight.continue to monitor labs/patient with you. Objective - Constitutional Vitals: Vital Signs - 12hr 02/14/17 02/14/17 02/14/17 12:33 13:26 14:26 Temperature 98.5 F 98 F Pulse Rate 57 L 83 Pulse Rate [ 73 Posterior Bilateral Throughout] Respiratory 18 18 Rate Respiratory 16 Rate [Posterior Bilateral Throughout] Blood Pressure 118/64 120/71 [Left] O2 Sat by Pulse 95 96 Oximetry 02/14/17 02/14/17 02/14/17 14:39 21:15 21:35 Temperature 98.3 F Pulse Rate 83 Pulse Rate [ 79 90 Posterior Bilateral Throughout] Respiratory 20 Rate Respiratory 16 18 Rate [Posterior Bilateral Throughout] Blood Pressure 136/67 [Left] O2 Sat by Pulse 100 Oximetry General appearance: Present: no acute distress, well-nourished - EENT Eyes: PERRL, EOM intact ENT: hearing intact, clear oral mucosa Ears: bilateral: normal - Neck Neck: supple, normal ROM - Respiratory Respiratory effort: normal Respiratory: bilateral: CTA - Cardiovascular Rhythm: regular Heart Sounds: Present: S1 & S2. Absent: gallop, rub Extremities: pulses intact, No edema, normal color, Full ROM - Gastrointestinal General gastrointestinal: Present: soft, non-tender, non-distended, normal bowel sounds Rectal Exam: deferred - Genitourinary Male genitourinary: deferred - Integumentary Integumentary: clear, warm, dry - Musculoskeletal Musculoskeletal: 1, strength equal bilaterally - Neurologic Neurologic: moves all extremities - Psychiatric Psychiatric: appropriate mood/affect - Labs CBC & Chem 7: 02/14/17 06:29 02/14/17 06:29 Labs: Abnormal lab results 02/14/17 02/14/17 Range/Units 06:29 06:29 RBC 3.32 L (3.65-5.03) M/mm3 Hgb 10.4 L (11.8-15.2) gm/dl Hct 31.5 L (35.5-45.6) % MCV 95 H (84-94) fl Potassium 3.2 L (3.6-5.0) mmol/L Creatinine 0.7 L (0.8-1.5) mg/dL
[2017-02-15] MEDS: DUONEB *Not for PRN Use IH SCH ×4 (02:22→20:36)
[2017-02-15] MEDS: ZOSYN/NS 3.375GM/50ML 3.375 GM/50 ML BAG IV SCH ×3 (06:04→22:06)
--- NOTE | 2017-02-15 09:03 | Progress Note ---
Assessment and Plan Assessment and plan: Sepsis due to pneumonia/UTI. Admitted to medical floor. Continue Zosyn and Vancomycin. Aspiration Pneumonia bilateral. On Zosyn and Vanco.Swallow evaluation done by speech Pathologist and she recommends pureed diet. Toxic metabolic encephaloathy, with altered mental status. This is improving. less confused. Urinary tract infection. Continue Zosyn and vancomycin. Urine cultures growing proteus Mirabilis sensitive to Zosyn he is getting COPD. This is stable Dementia. Supportive care Hypertension. B Monitor BP. He is on Lisinopril Full code status Will discharge back to hospice when stable, likely tomorrow. Diarrhea due to antibiotics. Will monitor History Interval history: less confused, no more fever Hospitalist Physical - Physical exam Narrative exam: Gen Appearance: Not in acute distress,malnourished HEENT: normocephalic, atraumatic Neck: supple, no JVD Lungs: Clear to auscultation, bilaterally, no rales, no wheeze Heart: S1 and S2 regular, no murmurs, rubs or gallop Abdomen: Soft , non tender, non distended, normal bowel sounds Extremity: No edema, no clubbing or cyanosis, Neuro : awake,less Ccnfused, follows commands, moves all extremities - Constitutional Vitals: Temp Pulse Resp BP Pulse Ox 98.8 F 76 18 145/71 98 02/15/17 06:00 02/15/17 07:37 02/15/17 07:37 02/15/17 06:00 02/15/17 07:24 General appearance: Present: no acute distress, well-nourished Results - Labs CBC & Chem 7: 02/14/17 06:29 02/15/17 06:13 Labs: Laboratory Last Values WBC 5.6 K/mm3 (4.5-11.0) 02/14/17 06:29 RBC 3.32 M/mm3 (3.65-5.03) L 02/14/17 06:29 Hgb 10.4 gm/dl (11.8-15.2) L 02/14/17 06:29 Hct 31.5 % (35.5-45.6) L 02/14/17 06:29 MCV 95 fl (84-94) H 02/14/17 06:29 MCH 31 pg (28-32) 02/14/17 06:29 MCHC 33 % (32-34) 02/14/17 06:29 RDW 15.1 % (13.2-15.2) 02/14/17 06:29 Plt Count 164 K/mm3 (140-440) 02/14/17 06:29 Lymph % (Auto) 20.0 % (13.4-35.0) 02/13/17 05:49 [place] % (Auto) 5.9 % (0.0-7.3) 02/13/17 05:49 Eos % (Auto) 0.2 % (0.0-4.3) 02/13/17 05:49 Baso % (Auto) 0.3 % (0.0-1.8) 02/13/17 05:49 Lymph # 1.5 K/mm3 (1.2-5.4) 02/13/17 05:49 [place] # 0.4 K/mm3 (0.0-0.8) 02/13/17 05:49 Eos # 0.0 K/mm3 (0.0-0.4) 02/13/17 05:49 Baso # 0.0 K/mm3 (0.0-0.1) 02/13/17 05:49 Seg Neutrophils % 73.6 % (40.0-70.0) H 02/13/17 05:49 Seg Neutrophils # 5.4 K/mm3 (1.8-7.7) 02/13/17 05:49 PT 18.0 Sec. (12.2-14.9) H 02/12/17 09:53 INR 1.41 (0.87-1.13) H 02/12/17 09:53 VBG pH 7.335 (7.320-7.420) 02/12/17 09:53 Sodium 140 mmol/L (137-145) 02/14/17 06:29 Potassium 3.7 mmol/L (3.6-5.0) 02/15/17 06:13 Chloride 106.4 mmol/L (98-107) 02/14/17 06:29 Carbon Dioxide 22 mmol/L (22-30) 02/14/17 06:29 Anion Gap 15 mmol/L 02/14/17 06:29 BUN 12 mg/dL (9-20) 02/14/17 06:29 Creatinine 0.7 mg/dL (0.8-1.5) L 02/14/17 06:29 Estimated GFR > 60 ml/min 02/14/17 06:29 BUN/Creatinine Ratio 17.14 % 02/14/17 06:29 Glucose 99 mg/dL (75-100) 02/14/17 06:29 Lactic Acid 3.10 mmol/L (0.7-2.0) H* 02/12/17 12:27 Calcium 8.4 mg/dL (8.4-10.2) 02/14/17 06:29 Total Bilirubin 0.70 mg/dL (0.1-1.2) 02/12/17 09:53 AST 13 units/L (5-40) 02/12/17 09:53 ALT 10 units/L (7-56) 02/12/17 09:53 Alkaline Phosphatase 84 units/L (35-129) 02/12/17 09:53 Total Protein 7.2 g/dL (6.3-8.2) 02/12/17 09:53 Albumin 3.1 g/dL (3.9-5) L 02/12/17 09:53 Albumin/Globulin Ratio 0.8 % 02/12/17 09:53 Vitamin B12 300.5 pg/mL (211-911) 02/14/17 04:48 Urine Color Red (Yellow) 02/12/17 09:50 Urine Turbidity Cloudy (Clear) 02/12/17 09:50 Urine pH 8.0 (5.0-7.0) H 02/12/17 09:50 Ur Specific [place] 1.021 (1.003-1.030) 02/12/17 09:50 Urine Protein 100 mg/dl mg/dL (Negative) 02/12/17 09:50 Urine Glucose (UA) Neg mg/dL (Negative) 02/12/17 09:50 Urine Ketones Neg mg/dL (Negative) 02/12/17 09:50 Urine Blood Lg (Negative) 02/12/17 09:50 Urine Nitrite Neg (Negative) 02/12/17 09:50 Urine Bilirubin Neg (Negative) 02/12/17 09:50 Urine Urobilinogen < 2.0 mg/dL (<2.0) 02/12/17 09:50 Ur Leukocyte Esterase Mod (Negative) 02/12/17 09:50 Urine WBC (Auto) > 182.0 /HPF (0.0-6.0) H 02/12/17 09:50 Urine RBC (Auto) > 182.0 /HPF (0.0-6.0) 02/12/17 09:50
[2017-02-15] MEDS: D5/0.45NS 1,000 ML IV SCH (10:12)
[2017-02-15] MEDS: ZESTRIL PO SCH (10:18)
[2017-02-15] MEDS: VANCOMYCIN/NS 1 GM/250 ML 1 GM/250 ML BAG IV SCH (10:19)
--- NOTE | 2017-02-15 21:24 | Progress Note ---
Assessment and Plan - Patient Problems (1) Dementia Current Visit: Yes Status: Acute Qualifiers: Dementia type: vascular dementia Alzheimer's disease onset: A Dementia behavioral disturbance: D Plan to address problem: supportive care. (2) Dehydration Current Visit: Yes Status: Acute Plan to address problem: HYDRATION (3) UTI (urinary tract infection) Current Visit: Yes Status: Acute Qualifiers: Urinary tract infection type: acute cystitis Hematuria presence: H Indwelling urinary catheter type: I Encounter type: E Plan to address problem: IV ABX (4) Pneumonia Current Visit: Yes Status: Acute Qualifiers: Pneumonia type: P Aspiration pneumonia type: A Laterality: L Lung location: L Plan to address problem: IV ABX (5) Anemia Current Visit: Yes Status: Acute Qualifiers: Anemia type: A Iron deficiency anemia type: I Vitamin B12 deficiency anemia type: V Folate deficiency anemia type: F Bone marrow failure anemia type: B Hemolytic anemia type: H Other causes of anemia: O Chronic kidney disease stage: C Plan to address problem: OF CD, monitor labs. (6) Sepsis Current Visit: Yes Status: Acute Qualifiers: Sepsis type: S Plan to address problem: Continue with IV abx. This is due ti UTI/PNEumonia. Subjective Date of service: 02/15/17 Principal diagnosis: uti/pneumonia. Interval history: patient seen/examined, ,trashing around/agitated.. Patient seen/examined, resting in bed, labs reviewed.No agitation tonight.continue to monitor labs/patient with you. Patient seen/examined, resting in bed, no new issues at this time.labs reviewed , and stable. Objective - Constitutional Vitals: Vital Signs - 12hr 02/15/17 02/15/17 02/15/17 10:00 10:18 14:00 Temperature 98 F Pulse Rate 87 85 Pulse Rate [ 87 Left Radial] Pulse Rate [ Posterior Bilateral Throughout] Respiratory 18 18 Rate Respiratory Rate [Posterior Bilateral Throughout] Blood Pressure 133/81 Blood Pressure 100/61 [Left] O2 Sat by Pulse 100 100 Oximetry 02/15/17 02/15/17 02/15/17 14:09 14:20 20:00 Temperature Pulse Rate Pulse Rate [ Left Radial] Pulse Rate [ 77 79 85 Posterior Bilateral Throughout] Respiratory Rate Respiratory 16 16 17 Rate [Posterior Bilateral Throughout] Blood Pressure Blood Pressure [Left] O2 Sat by Pulse Oximetry 02/15/17 20:43 Temperature Pulse Rate Pulse Rate [ Left Radial] Pulse Rate [ 85 Posterior Bilateral Throughout] Respiratory Rate Respiratory 17 Rate [Posterior Bilateral Throughout] Blood Pressure Blood Pressure [Left] O2 Sat by Pulse Oximetry General appearance: Present: no acute distress, well-nourished - EENT Eyes: PERRL, EOM intact ENT: hearing intact, clear oral mucosa Ears: bilateral: normal - Neck Neck: supple, normal ROM - Respiratory Respiratory: bilateral: CTA - Cardiovascular Rhythm: regular Heart Sounds: Present: S1 & S2. Absent: gallop, rub Extremities: pulses intact, No edema, normal color, Full ROM - Gastrointestinal General gastrointestinal: Present: soft, non-tender, non-distended, normal bowel sounds Rectal Exam: deferred - Genitourinary Male genitourinary: deferred - Integumentary Integumentary: clear, warm, dry - Neurologic Neurologic: moves all extremities - Psychiatric Psychiatric: appropriate mood/affect - Labs CBC & Chem 7: 02/14/17 06:29 02/15/17 06:13
[2017-02-15] MEDS: LOVENOX SUB-Q SCH (22:06)
[2017-02-16] MEDS: D5/0.45NS 1,000 ML IV SCH (00:15)
[2017-02-16] MEDS: DUONEB *Not for PRN Use IH SCH ×2 (04:25→09:29)
[2017-02-16] MEDS: ZOSYN/NS 3.375GM/50ML 3.375 GM/50 ML BAG IV SCH (05:14)
--- NOTE | 2017-02-16 09:48 | Discharge Summary ---
Providers - Providers Date of Admission: 02/12/17 11:17 Date of discharge: 02/16/17 Attending physician: HALLE LOVE 02/12/17 18:47 Physical Therapy Evaluation and Treat [CONS] Routine Comment: Reason For Exam: debility 02/12/17 18:59 Speech Therapy Evaluation and Treat [CONS] Routine Reason For Exam: aphasia 02/12/17 19:00 Speech Therapy Evaluation and Treat [CONS] Routine Reason For Exam: aphasia 02/13/17 05:54 Consult to Dietitian/Nutrition [CONS] Routine Physician Instructions: Reason For Exam: oral supplements Reason for Consult: Nutrition Recommendations Reason for Consult: Malnutrition Primary care physician: DEEP SEA DIVER Hospitalization Condition: Fair Disposition: DC/[place]-03 SNF [facility] CERT - Discharge Diagnoses (1) Sepsis Status: Acute Qualifiers: Sepsis type: S (2) UTI (urinary tract infection) Status: Acute Qualifiers: Urinary tract infection type: U Hematuria presence: H Indwelling urinary catheter type: I Encounter type: E (3) Aspiration pneumonia Status: Acute Qualifiers: Aspiration pneumonia type: A Laterality: bilateral Lung location: L (4) Toxic metabolic encephalopathy Status: Acute (5) Hypernatremia Status: Acute (6) Dehydration Status: Acute (7) Dementia Status: Chronic Qualifiers: Dementia type: D Alzheimer's disease onset: A Dementia behavioral disturbance: D (8) COPD (chronic obstructive pulmonary disease) Status: Chronic Qualifiers: COPD type: C Chronic bronchitis type: C Emphysema type: E (9) Hypertension Status: Chronic Qualifiers: Hypertension type: essential hypertension Qualified Code(s): I10 - Essential (primary) hypertension (10) Severe protein-calorie malnutrition Status: Chronic Core Measure Documentation - Palliative Care Palliative Care/ Comfort Measures: Not Applicable Exam - Constitutional Vitals: Temp Pulse Resp BP Pulse Ox 98.3 F 64 17 126/64 97 02/16/17 05:17 02/16/17 05:17 02/16/17 05:17 02/16/17 05:02/16/17 09:31 Plan Activity: advance as tolerated Diet: other (Pureed, cardiac diet) Additional Instructions: 1.Follow up with Physician at [facility] in 3-5 days Follow up with: PRIMARY CARE, [Primary Care Provider] - 7 Days
[2017-02-16] MEDS: VANCOMYCIN/NS 1 GM/250 ML 1 GM/250 ML BAG IV SCH (10:00)
[2017-02-16] MEDS ORDERED: LEVAQUIN PO SCH (11:00)
[2017-02-16] MEDS: ZESTRIL PO SCH (11:14)
[2017-02-16 11:18] VITALS: BP 117/61
== END 2017-02-16 12:26 | disposition home or self-care (01) | DRG 871 ==
LOC: ED 09:35 → CC2 11:17
PROVIDERS: ADMIT Internal Medicine; ATTEND Internal Medicine
DX: A41.9 Sepsis, unspecified organism (principal); J69.0 Pneumonitis due to inhalation of food and vomit; G92 Toxic encephalopathy; E43 Unspecified severe protein-calorie malnutrition; N39.0 Urinary tract infection, site not specified; N17.9 Acute kidney failure, unspecified; K52.1 Toxic gastroenteritis and colitis; E87.0 Hyperosmolality and hypernatremia; Z68.1 Body mass index [BMI] 19.9 or less, adult; T36.8X5A Adverse effect of other systemic antibiotics, initial encounter; F03.90 Unspecified dementia, unspecified severity, without behavioral disturbance, psychotic disturbance, mood disturbance, and anxiety; E86.0 Dehydration; R13.10 Dysphagia, unspecified; J44.9 Chronic obstructive pulmonary disease, unspecified; I10 Essential (primary) hypertension; F41.9 Anxiety disorder, unspecified; F10.20 Alcohol dependence, uncomplicated; Y90.9 Presence of alcohol in blood, level not specified; D64.9 Anemia, unspecified; Z79.899 Other long term (current) drug therapy; Y92.89 Other specified places as the place of occurrence of the external cause; Z82.49 Family history of ischemic heart disease and other diseases of the circulatory system; Z91.018 Allergy to other foods
CPT/HCPCS: 36415; 71010; 74230; 80048; 80053; 81001; 82140; 82607; 82805; 84132; 85025; 85027; 85610; 87040; 87076; 87086; 87186; 93005; 93010; 94640; 94760; 96361; 96374; 96375; G8978-GP; G8979-GP; G8996-GN; G8997-GN; G8998-GN; J0696; J1650; J1956; J2543; J3370; J7040

== ENCOUNTER 2017-08-21 13:37 | Emergency (ER) | payer MEDICARE ==
[2017-08-21 15:33] LABS: Basophils % (Auto) 0.3 % (0.0-1.8); Eosinophils # (Auto) 0.1 K/mm3 (0.0-0.4); Hematocrit 35.6 % (35.5-45.6); Hemoglobin 11.4 gm/dl (11.8-15.2); Lymphocytes # (Auto) 1.8 K/mm3 (1.2-5.4); Lymphocytes % (Auto) 26.6 % (13.4-35.0); Mean Corpuscular HGB Conc 32 % (32-34); Mean Corpuscular Hemoglobin 31 pg (28-32); Mean Corpuscular Volume 96 fl (84-94); Monocytes # (Auto) 0.4 K/mm3 (0.0-0.8); Monocytes % (Auto) 6.5 % (0.0-7.3); Platelet Count 282 K/mm3 (140-440); Red Cell Distribution Width 15.7 % (13.2-15.2)
[2017-08-21 16:05] LABS: INR 1.07 (0.87-1.13)
[2017-08-21 16:06] LABS: Partial Thromboplastin Time 28.4 Sec. (24.2-36.6)
[2017-08-21 16:40] LABS: Alanine Aminotransferase 5 units/L (7-56); BUN/Creatinine Ratio 43; Blood Urea Nitrogen 52 mg/dL (9-20); Calcium 9.4 mg/dL (8.4-10.2); Hemolysis Index 22
--- NOTE | 2017-08-21 16:54 | Cat Scan Report ---
FINAL REPORT EXAM: CT HEAD/BRAIN WO CON HISTORY: AMS TECHNIQUE: Standard unenhanced CT of the head at 5.0 millimeter axial increments. PRIORS: CT head 03/12/2016 FINDINGS: The ventricular system is normal in size and configuration. Moderate frontal lobe atrophy bilaterally is present mild cerebellar atrophy is seen. Remote lacunar infarcts in the thalami are present bilaterally. There is also small vessel ischemic changes in the periventricular white matter around the frontal horns. There is no evidence for mass lesion, mass effect, midline shift, acute intracranial hemorrhage, or acute ischemia/ infarction. No evidence for acute skull fracture is seen. No abnormality in the overlying scalp soft tissues is seen. Visualized paranasal sinuses are clear. IMPRESSION: No acute intracranial process noted. No change. Small vessel ischemic changes with remote lacunar infarcts and bilateral frontal lobe atrophy again noted.
--- NOTE | 2017-08-21 18:11 | Emergency Department Report ---
ED General Adult HPI - General Chief complaint: Altered Mental Status Stated complaint: ALTERED MENTAL STATUS Time Seen by Provider: 08/21/17 14:36 Source: family, EMS Mode of arrival: Stretcher Limitations: Altered Mental Status, Physical Limitation - History of Present Illness Initial comments: Patient presents to the ED from a local half-way via request of his daughter for evaluation of the patient's change in his behavior. The patient does have a history of dementia and her daughter states that she was visiting him he was not acting like himself. Due to the patient's dementia is unable to add to the history -: Sudden Severity scale (0 -10): 0 - Related Data Home Medications Medication Instructions Recorded Confirmed Last Taken Hyoscyamine Sulfate [Hyoscyamine 0.125 mg PO Q4HR PRN 02/12/17 02/12/17 Unknown Rapdis 0.125 mg] Morphine Sulfate 1 ml PO Q2H PRN 02/12/17 02/12/17 Unknown Previous Rx's Medication Instructions Recorded Last Taken Type Acetaminophen [Acetaminophen TAB] 650 mg PO Q4H PRN #30 tablet 05/15/16 Unknown Rx Bisacodyl [Dulcolax suppos] 10 mg GA QDAY PRN #10 supp.rect 05/15/16 Unknown Rx Ipratropium/Albuterol Sulfate 1 ampul IH Q6HR #30 05/15/16 Unknown Rx [DUONEB *Not for PRN Use*] LORazepam [Ativan] 1 mg PO TID PRN #10 tablet 05/15/16 Unknown Rx Lisinopril [Zestril TAB] 10 mg PO QDAY #30 tablet 05/15/16 Unknown Rx Levofloxacin [Levaquin TAB] 500 mg PO QDAY #7 tablet 02/16/17 Unknown Rx Allergies Allergy/AdvReac Type Severity Reaction Status Date / Time cheese AdvReac Vomiting Verified 08/21/17 14:58 ED Review of Systems ROS: Stated complaint: ALTERED MENTAL STATUS Other details as noted in HPI Comment: Unobtainable due to pts medical conditions ED Past Medical Hx - Past Medical History Hx Hypertension: Yes Hx Psychiatric Treatment: Yes (ANXIETY) Hx Dementia: Yes Hx HIV: No Additional medical history: Alcohol dependence, DVT,ENCEPHALOPATHY, MALNUTRITION , DYSPHAGIA - Surgical History Additional Surgical History: left knee surgery - Social History Smoking Status: Never Smoker Substance Use Type: None - Medications Home Medications: Home Medications Medication Instructions Recorded Confirmed Last Taken Type Acetaminophen [Acetaminophen TAB] 650 mg PO Q4H PRN #30 tablet 05/15/16 Unknown Rx Bisacodyl [Dulcolax suppos] 10 mg GA QDAY PRN #10 supp.rect 05/15/16 02/12/17 Unknown Rx Ipratropium/Albuterol Sulfate 1 ampul IH Q6HR #30 05/15/16 02/12/17 Unknown Rx [DUONEB *Not for PRN Use*] LORazepam [Ativan] 1 mg PO TID PRN #10 tablet 05/15/16 02/12/17 Unknown Rx Lisinopril [Zestril TAB] 10 mg PO QDAY #30 tablet 05/15/16 02/12/17 Unknown Rx Hyoscyamine Sulfate [Hyoscyamine 0.125 mg PO Q4HR PRN 02/12/17 02/12/17 Unknown History Rapdis 0.125 mg] Morphine Sulfate 1 ml PO Q2H PRN 02/12/17 02/12/17 Unknown History Levofloxacin [Levaquin TAB] 500 mg PO QDAY #7 tablet 02/16/17 Unknown Rx ED Physical Exam - General Limitations: Altered Mental Status, Physical Limitation General appearance: in no apparent distress - Head Head exam: Present: atraumatic, normocephalic - Eye Eye exam: Present: normal appearance, PERRL, EOMI. Absent: scleral icterus, conjunctival injection Pupils: Present: normal accommodation, irregular - ENT ENT exam: Present: normal exam. Absent: mucous membranes dry - Neck Neck exam: Present: other (supple) - Respiratory Respiratory exam: Present: normal lung sounds bilaterally - Cardiovascular Cardiovascular Exam: Present: regular rate, normal rhythm - GI/Abdominal GI/Abdominal exam: Present: soft, normal bowel sounds. Absent: distended, tenderness - Rectal Rectal exam: Present: deferred - Extremities Exam Extremities exam: Present: other. Absent: pedal edema - Neurological Exam Neurological exam: Present: other (patient is alert; not able to complete neurological exam due to the patient's baseline dementia) - Psychiatric Psychiatric exam: Present: other (not able to complete due to the patient's dementia) - Skin Skin exam: Present: warm, dry ED Course Vital Signs 08/21/17 08/21/17 08/21/17 14:00 14:05 14:15 Temperature 97.6 F Pulse Rate 60 66 63 Respiratory 18 14 16 Rate Blood Pressure 106/60 114/58 O2 Sat by Pulse 94 Oximetry 08/21/17 08/21/17 08/21/17 14:30 14:46 14:57 Temperature Pulse Rate 63 65 Respiratory 13 12 Rate Blood Pressure 105/55 114/58 O2 Sat by Pulse 99 100 94 Oximetry 08/21/17 08/21/17 08/21/17 15:00 15:16 15:30 Temperature Pulse Rate 57 L 54 L 51 L Respiratory 13 11 L 12 Rate Blood Pressure 102/57 102/57 111/54 O2 Sat by Pulse 88 95 100 Oximetry 08/21/17 08/21/17 08/21/17 15:50 16:00 16:16 Temperature Pulse Rate 54 L 54 L 60 Respiratory 15 19 24 Rate Blood Pressure 111/54 111/54 109/53 O2 Sat by Pulse Oximetry 08/21/17 08/21/17 08/21/17 16:30 16:46 17:00 Temperature Pulse Rate 52 L 57 L 57 L Respiratory 14 13 18 Rate Blood Pressure 109/53 109/59 O2 Sat by Pulse 83 L 87 Oximetry 08/21/17 08/21/17 08/21/17 17:16 17:30 17:46 Temperature Pulse Rate 47 L 48 L 49 L Respiratory 10 L 12 13 Rate Blood Pressure 120/60 96/54 96/54 O2 Sat by Pulse 99 Oximetry 08/21/17 08/21/17 08/21/17 18:00 18:16 18:30 Temperature Pulse Rate 57 L 45 L 46 L Respiratory 11 L 12 11 L Rate Blood Pressure 107/62 107/62 114/53 O2 Sat by Pulse 100 97 Oximetry 08/21/17 18:37 Temperature Pulse Rate 52 L Respiratory Rate Blood Pressure O2 Sat by Pulse Oximetry ED Medical Decision Making - Lab Data Result diagrams: 08/21/17 15:07 08/21/17 15:07 - EKG Data -: EKG Interpreted by Me EKG shows normal: sinus rhythm Rate: normal - EKG Data Interpretation: no acute changes - Medical Decision Making Discussed results with the patient's daughter. At that time she'll form me that she discovered from the half-way that they had given the patient Ativan prior to her arriving to see him. On reevaluation of the patient at 1830 the patient is more responsive Critical care attestation.: If time is entered above; I have spent that time in minutes in the direct care of this critically ill patient, excluding procedure time. ED Disposition Clinical Impression: Dementia, Mental status change Disposition: DC-01 TO HOME OR SELFCARE Is pt being admited?: No Does the pt Need Aspirin: No Condition: Stable Additional Instructions: Return if symptoms become worse Referrals: GLENROY GREGORY MD [Staff Physician] - 3-5 Days Time of Disposition: 19:06
--- NOTE | 2017-08-21 18:58 | XRay Report ---
FINAL REPORT EXAM: XR CHEST 1V AP HISTORY: altered mental status TECHNIQUE: AP portable view of the chest PRIORS: CXR 05/12/2016 FINDINGS: Lines, tubes, and devices: N/A Lungs and pleura: Trachea is normal in position. Lungs are clear of infiltrate, pleural effusion, vascular congestion, or pneumothorax. No change. Cardiomediastinal silhouette: Cardiac and mediastinal silhouettes are unremarkable. Other: Bony structures demonstrates severe narrowing of the acromial humeral distances bilaterally suggesting chronic rotator cuff injuries.. IMPRESSION: No acute cardiopulmonary process seen. No change.
[2017-08-21 19:37] VITALS: BP 117/63
[2017-08-22] MEDS ORDERED: PROTONIX IV ONE (05:57)
[2017-08-22] MEDS ORDERED: TYLENOL PO PRN (05:59)
[2017-08-22] MEDS ORDERED: HEPARIN SUB-Q SCH (06:00)
[2017-08-22] MEDS ORDERED: NACL 0.45% 1000 ML IV SCH (06:00)
[2017-08-22] MEDS ORDERED: NACL 0.45% 1000 ML 1,000 ML IV SCH (06:00)
--- NOTE | 2017-08-22 06:06 | History and Physical Report ---
History of Present Illness Date of examination: 08/22/17 Date of admission: 08/22/2017 Chief complaint: Confusion from the [place] History of present illness: Mr Sinha is 67 y.o male with advanced dementia, a [place] resident, who presented via EMS initially with c/o confusion, CT head in the ED, and was d/shay to [facility]. Pt presented back to the ED with c/o "Resp distress", with a 85% on RA recorded at the [place] facility. But during the encounter, he was 100% on RA, in no obvious resp difficulty.. A CTA chest has been ordered by the ED and pending at the time of this documentation. Due to advanced dementia, no form of History was obtained from the pt. Past History Past Medical History: hypertension, other (dementia, h/o alcohol abuse) Past Surgical History: Other (knee surgery) Social history: full code, other ([place] resident) Family history: hypertension Medications and Allergies Allergies Allergy/AdvReac Type Severity Reaction Status Date / Time cheese AdvReac Vomiting Verified 08/21/17 14:58 Home Medications Medication Instructions Recorded Confirmed Last Taken Type Acetaminophen [Acetaminophen TAB] 650 mg PO Q4H PRN #30 tablet 05/15/16 Unknown Rx Bisacodyl [Dulcolax suppos] 10 mg CA QDAY PRN #10 supp.rect 05/15/16 02/12/17 Unknown Rx Ipratropium/Albuterol Sulfate 1 ampul IH Q6HR #30 05/15/16 02/12/17 Unknown Rx [DUONEB *Not for PRN Use*] LORazepam [Ativan] 1 mg PO TID PRN #10 tablet 05/15/16 02/12/17 Unknown Rx Lisinopril [Zestril TAB] 10 mg PO QDAY #30 tablet 05/15/16 02/12/17 Unknown Rx Hyoscyamine Sulfate [Hyoscyamine 0.125 mg PO Q4HR PRN 02/12/17 02/12/17 Unknown History Rapdis 0.125 mg] Morphine Sulfate 1 ml PO Q2H PRN 02/12/17 02/12/17 Unknown History Levofloxacin [Levaquin TAB] 500 mg PO QDAY #7 tablet 02/16/17 Unknown Rx Active Meds: Active Medications Heparin Sodium (Porcine) (Heparin) 5,000 unit SUB-Q Q8HR MARTHA Sodium Chloride (Nacl 0.45% 1000 Ml) 75 ml IV DIRECT MARTHA Review of Systems ROS unobtainable: due to mental status (Has severe dementia) Exam - Constitutional Vitals: Temp Pulse Resp BP Pulse Ox 97.6 F 53 L 17 117/63 50 L 08/21/17 14:00 08/21/17 19:30 08/21/17 19:30 08/21/17 19:30 08/21/17 19:16 General appearance: Present: no acute distress, other (slim stature, mild bitemporal muscle wasting) - EENT Eyes: Present: PERRL ENT: edentulous (missing teeth) - Neck Neck: Present: supple, normal ROM - Respiratory Respiratory: negative: CTA, diminished, rales, rhonchi - Cardiovascular Rhythm: regular Heart Sounds: Present: S1 & S2 - Extremities Extremities: pulses intact, No edema, normal color Peripheral Pulses: within normal limits - Abdominal General gastrointestinal: Present: soft, non-tender, normal bowel sounds Male genitourinary: Present: deferred - Rectal Rectal Exam: deferred - Integumentary Integumentary: Present: clear, warm, decreased turgor - Musculoskeletal Musculoskeletal: generalized weakness - Psychiatric Psychiatric: other (non verbal during the encounter) - Neurologic Neurologic: other (unable to assess, pt with Severe Dementia) Results - Labs CBC & Chem 7: 08/21/17 15:07 08/21/17 15:07 Labs: Laboratory Last Values WBC 6.6 K/mm3 (4.5-11.0) 08/21/17 15:07 RBC 3.70 M/mm3 (3.65-5.03) 08/21/17 15:07 Hgb 11.4 gm/dl (11.8-15.2) L 08/21/17 15:07 Hct 35.6 % (35.5-45.6) 08/21/17 15:07 MCV 96 fl (84-94) H 08/21/17 15:07 MCH 31 pg (28-32) 08/21/17 15:07 MCHC 32 % (32-34) 08/21/17 15:07 RDW 15.7 % (13.2-15.2) H 08/21/17 15:07 Plt Count 282 K/mm3 (140-440) 08/21/17 15:07 Lymph % (Auto) 26.6 % (13.4-35.0) 08/21/17 15:07 [place] % (Auto) 6.5 % (0.0-7.3) 08/21/17 15:07 Eos % (Auto) 1.0 % (0.0-4.3) 08/21/17 15:07 Baso % (Auto) 0.3 % (0.0-1.8) 08/21/17 15:07 Lymph # 1.8 K/mm3 (1.2-5.4) 08/21/17 15:07 [place] # 0.4 K/mm3 (0.0-0.8) 08/21/17 15:07 Eos # 0.1 K/mm3 (0.0-0.4) 08/21/17 15:07 Baso # 0.0 K/mm3 (0.0-0.1) 08/21/17 15:07 Seg Neutrophils % 65.6 % (40.0-70.0) 08/21/17 15:07 Seg Neutrophils # 4.3 K/mm3 (1.8-7.7) 08/21/17 15:07 PT 14.5 Sec. (12.2-14.9) 08/21/17 15:07 INR 1.07 (0.87-1.13) 08/21/17 15:07 APTT 28.4 Sec. (24.2-36.6) 08/21/17 15:07 Sodium 148 mmol/L (137-145) H 08/21/17 15:07 Potassium 4.5 mmol/L (3.6-5.0) 08/21/17 15:07 Chloride 109.8 mmol/L (98-107) H 08/21/17 15:07 Carbon Dioxide 22 mmol/L (22-30) 08/21/17 15:07 Anion Gap 21 mmol/L 08/21/17 15:07 BUN 52 mg/dL (9-20) H 08/21/17 15:07 Creatinine 1.2 mg/dL (0.8-1.5) 08/21/17 15:07 Estimated GFR > 60 ml/min 08/21/17 15:07 BUN/Creatinine Ratio 43 % 08/21/17 15:07 Glucose 102 mg/dL (75-100) H 08/21/17 15:07 Calcium 9.4 mg/dL (8.4-10.2) 08/21/17 15:07 Phosphorus 3.90 mg/dL (2.5-4.5) 08/21/17 15:07 Magnesium 2.70 mg/dL (1.7-2.3) H 08/21/17 15:07 Total Bilirubin 0.20 mg/dL (0.1-1.2) 08/21/17 15:07 AST 9 units/L (5-40) 08/21/17 15:07 ALT 5 units/L (7-56) L 08/21/17 15:07 Alkaline Phosphatase 89 units/L (35-129) 08/21/17 15:07 Troponin T < 0.010 ng/mL (0.00-0.029) 08/21/17 15:07 Total Protein 7.4 g/dL (6.3-8.2) 08/21/17 15:07 Albumin 3.0 g/dL (3.9-5) L 08/21/17 15:07 Albumin/Globulin Ratio 0.7 % 08/21/17 15:07 - Imaging and Cardiology Chest x-ray: report reviewed CT Scan - head: report reviewed Assessment and Plan Assessment and plan: Assessment Altered Mental Status, chronic, with acute component likely 2/2 dehydration Profound Dehydration with Hypernatremia Adult Failure to thrive Advanced Dementia, with no behavioral disturbance Moderate Protein calorie Malnutrition Mild Anemia of chronic disease Hypoxia, resolved [place] Resident Full code status Fall risk Plan Admit inpt to [facility] unit fall and aspiration precautions at all times IVF hydration daily weights Strict I/Os obtain Venous doppler of BLE F/U CTA chest monitor closely Hold Beta blockade for now dvt and GI ulcer prophylaxis obtain UA, and treat if any signs of infections d./w the ED doctor, reviewed the [place] residents Further pt mgt per hospital course More than 30 mins spent of which more than 50% was spent in coordination of care
[2017-08-22] MEDS ORDERED: DUONEB *Not for PRN Use IH SCH (08:00)
== END 2017-08-21 21:16 | disposition home or self-care (01) ==
LOC: ED 13:37
DX: F03.90 Unspecified dementia, unspecified severity, without behavioral disturbance, psychotic disturbance, mood disturbance, and anxiety (principal); R41.82 Altered mental status, unspecified; I10 Essential (primary) hypertension; F41.9 Anxiety disorder, unspecified
CPT/HCPCS: 36415; 70450; 71045; 80053; 83735; 84100; 84484; 85025; 85610; 85730; 93005; 93010; 93970; C9113

== ENCOUNTER 2017-10-27 15:18 | Inpatient (IN) | payer MEDICARE ==
--- NOTE | 2017-10-27 15:33 | Emergency Department Report ---
HPI - General Time Seen by Provider: 10/27/17 15:21 - HPI HPI: Charge nurse triage/room 22 The patient is a 67-year-old male brought in with a chief complaint of unresponsiveness. Per EMS the patient's last known well time was 11:00. The patient is a resident at a personal [facility] reportedly was found unresponsive at approximately 13:30. [address] oxygen on the patient reportedly took approximately 20 minutes for him to start coming around. When EMS arrived they stated the patient was following commands but they noticed some weakness of the left upper and left lower extremity in addition to drooling. Upon arrival to the ED this weakness was no longer present. Patient speaks softly but denies any complaints currently Location: [See above] Duration: [See above] Quality: [See above] Severity: [See above] Modifying factors: [see above] Context: [see above] Mode of transportation: [not driving] ED Past Medical Hx - Past Medical History Hx Hypertension: Yes Hx Psychiatric Treatment: Yes (ANXIETY) Hx Dementia: Yes Additional medical history: Alcohol dependence, DVT,ENCEPHALOPATHY, MALNUTRITION , DYSPHAGIA - Surgical History Additional Surgical History: left knee surgery - Family History Family history: no significant - Social History Smoking Status: Unknown if ever smoked - Medications Home Medications: Home Medications Medication Instructions Recorded Confirmed Last Taken Type Acetaminophen [Acetaminophen TAB] 650 mg PO Q4H PRN #30 tablet 05/15/16 Unknown Rx Bisacodyl [Dulcolax suppos] 10 mg CO QDAY PRN #10 supp.rect 05/15/16 02/12/17 Unknown Rx Ipratropium/Albuterol Sulfate 1 ampul IH Q6HR #30 05/15/16 02/12/17 Unknown Rx [DUONEB *Not for PRN Use*] LORazepam [Ativan] 1 mg PO TID PRN #10 tablet 05/15/16 02/12/17 Unknown Rx Lisinopril [Zestril TAB] 10 mg PO QDAY #30 tablet 05/15/16 02/12/17 Unknown Rx Hyoscyamine Sulfate [Hyoscyamine 0.125 mg PO Q4HR PRN 02/12/17 02/12/17 Unknown History Rapdis 0.125 mg] Apixaban [Eliquis] 5 mg PO BID #50 tablet 08/26/17 Unknown Rx ED Review of Systems ROS: Stated complaint: POSSIBLE STROKE Other details as noted in HPI Constitutional: no symptoms reported Physical Exam - Physical Exam Physical Exam: GENERAL: The patient is well-developed well-nourished thin male sitting on stretcher not appearing to be in acute distress. [] HEENT: Normocephalic. Atraumatic. Extraocular motions are intact. Patient has moist mucous membranes. NECK: Supple. Trachea midline CHEST/LUNGS: Clear to auscultation. There is no respiratory distress noted. HEART/CARDIOVASCULAR: Regular. There is no tachycardia. There is no gallop rub or murmur. ABDOMEN: Abdomen is soft, nontender. Patient has normal bowel sounds. There is no abdominal distention. SKIN: There is no rash. There is no edema. There is no diaphoresis. NEURO: The patient is awake, alert, and oriented. The patient is cooperative. The patient has no focal neurologic deficits. The patient has normal speech. Radial nerves II through XII grossly intact, no drift. Moves all extremities equally MUSCULOSKELETAL: There is no evidence of acute injury. ED Medical Decision Making - Lab Data Result diagrams: 10/27/17 Unknown 10/27/17 Unknown Laboratory Tests 10/27/17 10/27/17 10/27/17 15:54 Unknown Unknown WBC 3.9 L RBC 4.17 Hgb 13.3 Hct 41.3 MCV 99 H MCH 32 MCHC 32 RDW 16.3 H Plt Count 196 Lymph % (Auto) Mechanism Assembler [place] % (Auto) Mechanism Assembler Eos % (Auto) Mechanism Assembler Baso % (Auto) Mechanism Assembler Lymph # Mechanism Assembler [place] # Mechanism Assembler Eos # Mechanism Assembler Baso # Mechanism Assembler Seg Neutrophils % Mechanism Assembler Seg Neutrophils # Mechanism Assembler PT 15.9 H INR 1.20 H APTT 33.0 Thrombin Time Sodium Potassium Chloride Carbon Dioxide Anion Gap BUN Creatinine Estimated GFR BUN/Creatinine Ratio Glucose Calcium Total Bilirubin AST ALT Alkaline Phosphatase Ammonia 42.0 Total Creatine Kinase CK-MB (CK-2) CK-MB (CK-2) Rel Index Troponin T Total Protein Albumin Albumin/Globulin Ratio TSH Plasma/Serum Alcohol 10/27/17 10/27/17 10/27/17 Unknown Unknown Unknown WBC RBC Hgb Hct MCV MCH MCHC RDW Plt Count Lymph % (Auto) [place] % (Auto) Eos % (Auto) Baso % (Auto) Lymph # [place] # Eos # Baso # Seg Neutrophils % Seg Neutrophils # PT INR APTT Thrombin Time 20.4 H Sodium 138 Potassium 5.5 H Chloride 100.5 Carbon Dioxide 22 Anion Gap 21 BUN 34 H Creatinine 1.2 Estimated GFR > 60 BUN/Creatinine Ratio 28 Glucose 87 Calcium 9.5 Total Bilirubin 0.30 AST 15 ALT 16 Alkaline Phosphatase 126 Ammonia Total Creatine Kinase 70 CK-MB (CK-2) 2.2 CK-MB (CK-2) Rel Index 3.1 Troponin T < 0.010 Total Protein 8.2 Albumin 3.8 L Albumin/Globulin Ratio 0.9 TSH Plasma/Serum Alcohol 10/27/17 10/27/17 Unknown Unknown WBC RBC Hgb Hct MCV MCH MCHC RDW Plt Count Lymph % (Auto) [place] % (Auto) Eos % (Auto) Baso % (Auto) Lymph # [place] # Eos # Baso # Seg Neutrophils % Seg Neutrophils # PT INR APTT Thrombin Time Sodium Potassium Chloride Carbon Dioxide Anion Gap BUN Creatinine Estimated GFR BUN/Creatinine Ratio Glucose Calcium Total Bilirubin AST ALT Alkaline Phosphatase Ammonia Total Creatine Kinase CK-MB (CK-2) CK-MB (CK-2) Rel Index Troponin T Total Protein Albumin Albumin/Globulin Ratio TSH 1.530 Plasma/Serum Alcohol < 0.01 Laboratory Tests 10/27/17 10/27/17 10/27/17 15:54 17:16 Unknown WBC 3.9 L RBC 4.17 Hgb 13.3 Hct 41.3 MCV 99 H MCH 32 MCHC 32 RDW 16.3 H Plt Count 196 Lymph % (Auto) Mechanism Assembler [place] % (Auto) Mechanism Assembler Eos % (Auto) Mechanism Assembler Baso % (Auto) Mechanism Assembler Lymph # Mechanism Assembler [place] # Mechanism Assembler Eos # Mechanism Assembler Baso # Mechanism Assembler Seg Neutrophils % Mechanism Assembler Seg Neutrophils # Mechanism Assembler PT INR APTT Thrombin Time POC ABG pH 7.329 L POC ABG pCO2 46.6 H POC ABG pO2 164 H POC ABG HCO3 24.5 POC ABG Total CO2 26 POC ABG O2 Sat 99 POC ABG Base Excess -1 FiO2 33 Sodium Potassium Chloride Carbon Dioxide Anion Gap BUN Creatinine Estimated GFR BUN/Creatinine Ratio Glucose Calcium Total Bilirubin AST ALT Alkaline Phosphatase Ammonia 42.0 Total Creatine Kinase CK-MB (CK-2) CK-MB (CK-2) Rel Index Troponin T Total Protein Albumin Albumin/Globulin Ratio TSH Free T4 Plasma/Serum Alcohol 10/27/17 10/27/17 10/27/17 Unknown Unknown Unknown WBC RBC Hgb Hct MCV MCH MCHC RDW Plt Count Lymph % (Auto) [place] % (Auto) Eos % (Auto) Baso % (Auto) Lymph # [place] # Eos # Baso # Seg Neutrophils % Seg Neutrophils # PT 15.9 H INR 1.20 H APTT 33.0 Thrombin Time 20.4 H POC ABG pH POC ABG pCO2 POC ABG pO2 POC ABG HCO3 POC ABG Total CO2 POC ABG O2 Sat POC ABG Base Excess FiO2 Sodium Potassium Chloride Carbon Dioxide Anion Gap BUN Creatinine Estimated GFR BUN/Creatinine Ratio Glucose Calcium Total Bilirubin AST ALT Alkaline Phosphatase Ammonia Total Creatine Kinase CK-MB (CK-2) CK-MB (CK-2) Rel Index Troponin T < 0.010 Total Protein Albumin Albumin/Globulin Ratio TSH Free T4 Plasma/Serum Alcohol 10/27/17 10/27/17 10/27/17 Unknown Unknown Unknown WBC RBC Hgb Hct MCV MCH MCHC RDW Plt Count Lymph % (Auto) [place] % (Auto) Eos % (Auto) Baso % (Auto) Lymph # [place] # Eos # Baso # Seg Neutrophils % Seg Neutrophils # PT INR APTT Thrombin Time POC ABG pH POC ABG pCO2 POC ABG pO2 POC ABG HCO3 POC ABG Total CO2 POC ABG O2 Sat POC ABG Base Excess FiO2 Sodium 138 Potassium 5.5 H Chloride 100.5 Carbon Dioxide 22 Anion Gap 21 BUN 34 H Creatinine 1.2 Estimated GFR > 60 BUN/Creatinine Ratio 28 Glucose 87 Calcium 9.5 Total Bilirubin 0.30 AST 15 ALT 16 Alkaline Phosphatase 126 Ammonia Total Creatine Kinase 70 CK-MB (CK-2) 2.2 CK-MB (CK-2) Rel Index 3.1 Troponin T Total Protein 8.2 Albumin 3.8 L Albumin/Globulin Ratio 0.9 TSH 1.530 Free T4 1.22 Plasma/Serum Alcohol < 0.01 - EKG Data -: EKG Interpreted by Ct EKG shows normal: sinus rhythm Rate: bradycardia (51) - EKG Data When compared to previous EKG there are: previous EKG unavailable Interpretation: other (sinus bradycardia at 51 bpm. First degree AV block) - Radiology Data Radiology results: report reviewed (CT head (discussed with radiologist)) CT head (discussed with radiologist)-no acute findings - Differential Diagnosis syncope, TIA, electrolyte abnormality, dysrhythmia Critical care attestation.: If time is entered above; I have spent that time in minutes in the direct care of this critically ill patient, excluding procedure time. ED Disposition Clinical Impression: Syncope Disposition: OP ADMIT IP TO THIS HOSP Is pt being admited?: Yes Condition: Stable Instructions: Syncope (ED) Time of Disposition: 17:18 (hospitalist notified (Dr Shay))
--- NOTE | 2017-10-27 15:44 | Cat Scan Report ---
CT HEAD WITHOUT CONTRAST: HISTORY: Neurological deficit. TECHNIQUE: Sequential 2.5mm CT images. COMPARISON: 08/21/17. FINDINGS: Cerebral Parenchyma: Mild diffuse volume loss is unchanged. Chronic white matter changes are also stable. Chronic lacunar infarcts are identified in both basal ganglia and left stewart radiata which are unchanged. No evidence for mass. Cerebellum: Within normal limits. Brainstem: Within normal limits. Ventricles: Normal. Sella: Normal. Extra-axial spaces: Normal. Basal Cisterns: Normal. Intracranial Hemorrhage: None. Midline Shift: None. Calvarium: Normal. Sinuses: Normal. Mastoid Air Cells: Normal. Visualized Orbits: Normal. IMPRESSION: No acute intracranial process. Chronic findings which are unchanged since 08/21/17. These findings were discussed with Dr. Alonzo in the emergency department at 1533 hrs.
[2017-10-27 16:14] LABS: INR 1.2 (0.87-1.13)
[2017-10-27 16:22] LABS: Creatine Kinase MB 2.2 ng/mL (0.0-4.0)
[2017-10-27 16:26] LABS: Alanine Aminotransferase 16 units/L (7-56); Albumin 3.8 g/dL (3.9-5); BUN/Creatinine Ratio 28; Blood Urea Nitrogen 34 mg/dL (9-20); Calcium 9.5 mg/dL (8.4-10.2); Hemolysis Index 23
[2017-10-27 16:27] LABS: Hematocrit 41.3 % (35.5-45.6); Hemoglobin 13.3 gm/dl (11.8-15.2); Mean Corpuscular HGB Conc 32 % (32-34); Mean Corpuscular Hemoglobin 32 pg (28-32); Mean Corpuscular Volume 99 fl (84-94); Platelet Count 196 K/mm3 (140-440); Red Blood Count 4.17 M/mm3 (3.65-5.03); Red Cell Distribution Width 16.3 % (13.2-15.2)
[2017-10-27 16:55] LABS: Free T4 (Free Thyroxine) 1.22 ng/dL (0.76-1.46)
[2017-10-27 17:28] LABS: Basophils % (Manual) 0 % (0.0-1.8); Platelet Estimate Consistent w Auto; RBC Morphology Normal; Total Cells Counted 100
--- NOTE | 2017-10-27 23:04 | Event Note ---
Date: 10/27/17 See dictated H/p in rreports
[2017-10-27] MEDS ORDERED: SODIUM CHLORIDE FLUSH SYRINGE 10 ML IV PRN (23:06)
[2017-10-27] MEDS ORDERED: ZOFRAN IV PRN (23:06)
[2017-10-27] MEDS ORDERED: MORPHINE IV PRN (23:06)
[2017-10-27] MEDS ORDERED: PERCOCET 5/325 PO PRN (23:06)
[2017-10-27] MEDS ORDERED: TYLENOL PO PRN (23:06)
[2017-10-27] MEDS ORDERED: CALCIUM CHLORIDE 2,000 MG in NACL 0.9% 100 ML IV ONE (23:09)
[2017-10-27] MEDS ORDERED: KIONEX PO ONE (23:09)
[2017-10-27] MEDS ORDERED: LEVSIN SL PO PRN (23:16)
[2017-10-27] MEDS ORDERED: DULCOLAX PR PRN (23:16)
[2017-10-27] MEDS ORDERED: SODIUM CHLORIDE FLUSH SYRINGE 10 ML INJ PRN (23:22)
[2017-10-28] MEDS: DUONEB *Not for PRN Use IH SCH ×4 (01:18→19:57)
[2017-10-28] MEDS: ELIQUIS PO SCH ×3 (01:44→23:26)
--- NOTE | 2017-10-28 01:50 | History and Physical Report ---
CHIEF COMPLAINT: 1. Decreased responsiveness: 2. Left-sided weakness. HISTORY OF PRESENT ILLNESS: The patient is a 67-year-old male who was brought in from personal [facility] by EMS for decreased responsiveness and possible left-sided weakness. The patient was apparently well at around 11:00 a.m. The patient was lethargic initially. Took about 20 minutes to come around. The patient speaks softly, but denies any complaints. No fever, no chills. Poor p.o. intake. PAST MEDICAL HISTORY: Significant for hypertension, anxiety disorder, dementia, alcohol dependence in the past, DVT, encephalopathy, malnutrition and dysphagia. PAST SURGICAL HISTORY: Left knee surgery. FAMILY HISTORY: Hypertension. SOCIAL HISTORY: Does not smoke. No alcohol. Lives in personal fdc. CURRENT MEDICATIONS: Lisinopril 10 mg p.o. daily, Eliquis 5 mg p.o. b.i.d., hyoscyamine 0.125 p.o. q. 4 hours, DuoNebs 1 ampule q. 6 hours. REVIEW OF SYSTEMS: Significant for slight left-sided weakness and altered sensorium, which has resolved while in the ER. A 14-point review of systems otherwise negative. PHYSICAL EXAMINATION: GENERAL: Elderly male, cooperative during examination. VITAL SIGNS: Blood pressure is 116/68, temperature is 98, pulse is 46, respirations are 11, and sats are 100%. HEENT: Unremarkable. Tongue is slightly dry. NECK: Supple, no lymphadenopathy, no thyromegaly. LUNGS: Clear to auscultation and percussion. Good air entry. CARDIOVASCULAR: S1, S2 heard. No gallop, no murmur, no rub. Apical impulse in left fifth intercostal space and midclavicular line. ABDOMEN: Soft and benign. No hepatosplenomegaly. No guarding, no rigidity. Hernial orifices are normal. EXTREMITIES: Good pedal pulses. No pedal edema. CENTRAL NERVOUS SYSTEM: Alert and oriented x 4, nonfocal exam. SKIN: Normal. LABORATORY DATA: Significant for BUN and creatinine of 34 and 1.2. Potassium of 5.5. Otherwise, EKG shows a normal sinus rhythm, sinus bradycardia at 50 and first-degree AV block. CT of the head, no acute findings. ASSESSMENT AND PLAN: 1. Syncope. Syncope workup. Lexiscan echo and carotid duplex scan ordered. 2. TIA. MRI/MRA, carotid duplex scan and echocardiogram ordered. The patient recovered completely in the Emergency Room. 3. Hypertension. Continue antihypertensives in the form of lisinopril 10 mg once a day. 4. Coronary artery disease and atrial fibrillation. The patient to be on Eliquis 5 mg twice a day. 5. COPD. Continue DuoNeb. 6. Irritable bowel syndrome. Continue hyoscyamine 0.125 p.o. q. 4 hours p.r.n. 7. Generalized anxiety disorder. Continue lorazepam 1 mg p.o. t.i.d. 8. Deep venous thrombosis prophylaxis, heparin 5000 q. 12 hours. 9. P prerenal azotemia. BUN and creatinine are high, BUN of 34, creatinine of 1.2. IV fluids for now. 10. Deep venous thrombosis prophylaxis, heparin 5000 q.12h. JOB# [id number] VSM/NTS
[2017-10-28] MEDS: D5NS 1,000 ML IV SCH ×2 (03:09→23:46)
[2017-10-28 04:38] LABS: Basophils % (Auto) 0.5 % (0.0-1.8); Eosinophils # (Auto) 0.1 K/mm3 (0.0-0.4); Eosinophils % (Auto) 1.7 % (0.0-4.3); Hematocrit 39.7 % (35.5-45.6); Hemoglobin 12.8 gm/dl (11.8-15.2); Lymphocytes # (Auto) 1.8 K/mm3 (1.2-5.4); Lymphocytes % (Auto) 45.2 % (13.4-35.0); Mean Corpuscular HGB Conc 32 % (32-34); Mean Corpuscular Hemoglobin 32 pg (28-32); Mean Corpuscular Volume 98 fl (84-94); Monocytes # (Auto) 0.3 K/mm3 (0.0-0.8); Monocytes % (Auto) 7.4 % (0.0-7.3); Platelet Count 178 K/mm3 (140-440); Red Blood Count 4.05 M/mm3 (3.65-5.03); Red Cell Distribution Width 15.7 % (13.2-15.2)
[2017-10-28 05:22] LABS: Alanine Aminotransferase 22 units/L (7-56); Albumin 3.8 g/dL (3.9-5); BUN/Creatinine Ratio 28; Blood Urea Nitrogen 34 mg/dL (9-20); Calcium 9.7 mg/dL (8.4-10.2); HDL Cholesterol 56 mg/dL (40-59); Hemolysis Index 10; LDL Cholesterol,Direct 106 mg/dL (50-130)
[2017-10-28] MEDS ORDERED: HEPARIN SUB-Q SCH (10:00)
[2017-10-28] MEDS: SODIUM CHLORIDE FLUSH SYRINGE 10 ML IV SCH ×2 (10:42→23:47)
[2017-10-28] MEDS: ZESTRIL PO SCH (10:44)
--- NOTE | 2017-10-28 11:49 | Magnetic Resonance Report ---
MRI BRAIN WITHOUT CONTRAST INDICATION: Stroke. COMPARISON: Yesterday's head CT. FINDINGS: Noncontrast multiplanar and multisequence MRI of the brain demonstrates no acute infarct, hemorrhage, mass effect or midline shift. Bifrontal sulcal prominence/atrophy noted with extra-axial fluid thickness estimated at 0.5 cm on the right and 0.6 cm on the left, axial series 6, image 19. Normal ventricles. Overall age-appropriate atrophy with moderate periventricular white matter FLAIR and T2 weighted hyperintensities with few small scattered lacunar infarcts as a 0.6 cm left frontal periventricular, axial image 19. Normal major intracranial flow voids. Approximately 2 x 1 cm probable right petrous apicitis, axial image 19. Slight cystic changes within right mesial temporal lobe also noted, the largest focus approximately 0.5 cm, axial image 13, series 6. Posterior fossa demonstrates approximately 1 cm linear left cerebellar lacunar infarct, axial images 6-7. Otherwise unremarkable with preserved basilar cisterns and symmetric seventh and eighth nerve complexes. Vertebrobasilar tortuosity incidentally noted. Normal eye globes. Clear imaged paranasal sinuses and mastoid air cells. Normal midline structures without evidence of Chiari malformation. CONCLUSION: 1. Atrophy and microvascular changes noted without evidence of an acute stroke, as described. 2. Few other findings as small cystic changes in the right mesial temporal lobe and right petrous apicitis, amongst others, as described. Please correlate. Thank you for the opportunity to participate in this patient's care.
--- NOTE | 2017-10-28 11:53 | Magnetic Resonance Report ---
MRA HEAD WITHOUT CONTRAST INDICATION: Stroke. COMPARISON: None similar. FINDINGS: MRA of the head performed without intravenous contrast and demonstrates no evidence of flow-limiting stenosis, occlusion or vascular malformation. Left PCOM not clearly identified. Mild vertebrobasilar tortuosity. Please note that detection of aneurysms less than 5 mm is limited on this exam. CONCLUSION: Normal study of the [place] of [place]. Thank you for the opportunity to participate in this patient's care.
--- NOTE | 2017-10-28 13:57 | Progress Note ---
History Interval history: Altered mental status Hospitalist Physical - Physical exam Narrative exam: General: Not in acute distress, lying in bed HEENT:Normocephalic, atraumatic Neck:supple,no JVD Lungs: Clear to auscultation bilaterally, no crackles, no wheeze Heart:S1 and S2 regular, no murmurs, rubs or gallop Abd: soft, non tender, non distended, normal bowel sounds Ext: No edema, no clubbing, no cyanosis Neuro: lethargic, has baseline dementia. - Constitutional Vitals: Temp Pulse Resp BP Pulse Ox 97.8 F 51 L 14 124/63 100 10/28/17 03:00 10/28/17 10:46 10/28/17 10:46 10/28/17 10:46 10/28/17 10:46 Results - Labs CBC & Chem 7: 10/28/17 04:16 10/29/17 10:26 Labs: Laboratory Last Values WBC 4.1 K/mm3 (4.5-11.0) L 10/28/17 04:16 RBC 4.05 M/mm3 (3.65-5.03) 10/28/17 04:16 Hgb 12.8 gm/dl (11.8-15.2) 10/28/17 04:16 Hct 39.7 % (35.5-45.6) 10/28/17 04:16 MCV 98 fl (84-94) H 10/28/17 04:16 MCH 32 pg (28-32) 10/28/17 04:16 MCHC 32 % (32-34) 10/28/17 04:16 RDW 15.7 % (13.2-15.2) H 10/28/17 04:16 Plt Count 178 K/mm3 (140-440) 10/28/17 04:16 Lymph % (Auto) 45.2 % (13.4-35.0) H 10/28/17 04:16 [place] % (Auto) 7.4 % (0.0-7.3) H 10/28/17 04:16 Eos % (Auto) 1.7 % (0.0-4.3) 10/28/17 04:16 Baso % (Auto) 0.5 % (0.0-1.8) 06/06/18 04:16 Lymph # 1.8 K/mm3 (1.2-5.4) 10/28/17 04:16 [place] # 0.3 K/mm3 (0.0-0.8) 10/28/17 04:16 Eos # 0.1 K/mm3 (0.0-0.4) 10/28/17 04:16 Baso # 0.0 K/mm3 (0.0-0.1) 10/28/17 04:16 Add Manual Diff Complete 10/27/17 Unknown Total Counted 100 10/27/17 Unknown Seg Neutrophils % 45.2 % (40.0-70.0) 10/28/17 04:16 Seg Neuts % (Manual) 54.0 % (40.0-70.0) 10/27/17 Unknown Band Neutrophils % 0 % 10/27/17 Unknown Lymphocytes % (Manual) 39.0 % (13.4-35.0) H 10/27/17 Unknown Reactive Lymphs % (Man) 1.0 % 10/27/17 Unknown Monocytes % (Manual) 5.0 % (0.0-7.3) 10/27/17 Unknown Eosinophils % (Manual) 1.0 % (0.0-4.3) 10/27/17 Unknown Basophils % (Manual) 0 % (0.0-1.8) 10/27/17 Unknown Metamyelocytes % 0 % 10/27/17 Unknown Myelocytes % 0 % 10/27/17 Unknown Promyelocytes % 0 % 10/27/17 Unknown Blast Cells % 0 % 10/27/17 Unknown Nucleated RBC % Not Reportable 10/27/17 Unknown Seg Neutrophils # 1.8 K/mm3 (1.8-7.7) 10/28/17 04:16 Seg Neutrophils # Man 2.1 K/mm3 (1.8-7.7) 10/27/17 Unknown Band Neutrophils # 0.0 K/mm3 10/27/17 Unknown Lymphocytes # (Manual) 1.5 K/mm3 (1.2-5.4) 10/27/17 Unknown Abs React Lymphs (Man) 0.0 K/mm3 10/27/17 Unknown Monocytes # (Manual) 0.2 K/mm3 (0.0-0.8) 10/27/17 Unknown Eosinophils # (Manual) 0.0 K/mm3 (0.0-0.4) 10/27/17 Unknown Basophils # (Manual) 0.0 K/mm3 (0.0-0.1) 10/27/17 Unknown Metamyelocytes # 0.0 K/mm3 10/27/17 Unknown Myelocytes # 0.0 K/mm3 10/27/17 Unknown Promyelocytes # 0.0 K/mm3 10/27/17 Unknown Blast Cells # 0.0 K/mm3 10/27/17 Unknown WBC Morphology Not Reportable 10/27/17 Unknown Hypersegmented Neuts Not Reportable 10/27/17 Unknown Hyposegmented Neuts Not Reportable 10/27/17 Unknown Hypogranular Neuts Not Reportable 10/27/17 Unknown Smudge Cells Not Reportable 10/27/17 Unknown Toxic Granulation Not Reportable 10/27/17 Unknown Toxic Vacuolation Not Reportable 10/27/17 Unknown Dohle Bodies Not Reportable 10/27/17 Unknown Pelger-Huet Anomaly Not Reportable 10/27/17 Unknown Brendon Rods Not Reportable 10/27/17 Unknown Platelet Estimate Consistent w auto 10/27/17 Unknown Clumped Platelets Not Reportable 10/27/17 Unknown Plt Clumps, EDTA Not Reportable 10/27/17 Unknown Large Platelets Not Reportable 10/27/17 Unknown Giant Platelets Not Reportable 10/27/17 Unknown Platelet Satelliting Not Reportable 10/27/17 Unknown Plt Morphology Comment Not Reportable 10/27/17 Unknown RBC Morphology Normal 10/27/17 Unknown Dimorphic RBCs Not Reportable 10/27/17 Unknown Polychromasia Not Reportable 10/27/17 Unknown Hypochromasia Not Reportable 10/27/17 Unknown Poikilocytosis Not Reportable 10/27/17 Unknown Anisocytosis Not Reportable 10/27/17 Unknown Microcytosis Not Reportable 10/27/17 Unknown Macrocytosis Not Reportable 10/27/17 Unknown Spherocytes Not Reportable 10/27/17 Unknown Pappenheimer Bodies Not Reportable 10/27/17 Unknown Sickle Cells Not Reportable 10/27/17 Unknown Target Cells Not Reportable 10/27/17 Unknown Tear Drop Cells Not Reportable 10/27/17 Unknown Ovalocytes Not Reportable 10/27/17 Unknown Helmet Cells Not Reportable 10/27/17 Unknown Bose-Moreland Bodies Not Reportable 10/27/17 Unknown [place] Rings Not Reportable 10/27/17 Unknown [place] Cells Not Reportable 10/27/17 Unknown Bite Cells Not Reportable 10/27/17 Unknown Crenated Cell Not Reportable 10/27/17 Unknown Elliptocytes Not Reportable 10/27/17 Unknown Acanthocytes (Spur) Not Reportable 10/27/17 Unknown Rouleaux Not Reportable 10/27/17 Unknown Hemoglobin C Crystals Not Reportable 10/27/17 Unknown Schistocytes Not Reportable 10/27/17 Unknown Malaria parasites Not Reportable 10/27/17 Unknown Conrado Bodies Not Reportable 10/27/17 Unknown Hem Pathologist Commnt No 10/27/17 Unknown PT 15.9 Sec. (12.2-14.9) H 10/27/17 Unknown INR 1.20 (0.87-1.13) H 10/27/17 Unknown APTT 33.0 Sec. (24.2-36.6) 10/27/17 Unknown Thrombin Time 20.4 Sec. (15.1-19.6) H 10/27/17 Unknown POC ABG pH 7.329 (7.35-7.45) L 10/27/17 17:16 POC ABG pCO2 46.6 (35-45) H 10/27/17 17:16 POC ABG pO2 164 (80-105) H 10/27/17 17:16 POC ABG HCO3 24.5 10/27/17 17:16 POC ABG Total CO2 26 10/27/17 17:16 POC ABG O2 Sat 99 10/27/17 17:16 POC ABG Base Excess -1 10/27/17 17:16 FiO2 33 % 10/27/17 17:16 Sodium 140 mmol/L (137-145) 10/28/17 04:16 Potassium 4.8 mmol/L (3.6-5.0) 10/28/17 04:16 Chloride 103.0 mmol/L (98-107) 10/28/17 04:16 Carbon Dioxide 25 mmol/L (22-30) 10/28/17 04:16 Anion Gap 17 mmol/L 10/28/17 04:16 BUN 34 mg/dL (9-20) H 10/28/17 04:16 Creatinine 1.2 mg/dL (0.8-1.5) 10/28/17 04:16 Estimated GFR > 60 ml/min 10/28/17 04:16 BUN/Creatinine Ratio 28 % 10/28/17 04:16 Glucose 105 mg/dL (75-100) H 10/28/17 04:16 Hemoglobin A1c 5.3 % (4-6) 10/28/17 01:36 Calcium 9.7 mg/dL (8.4-10.2) 10/28/17 04:16 Total Bilirubin 0.30 mg/dL (0.1-1.2) 10/28/17 04:16 AST 29 units/L (5-40) 10/28/17 04:16 ALT 22 units/L (7-56) 10/28/17 04:16 Alkaline Phosphatase 115 units/L (35-129) 10/28/17 04:16 Ammonia 42.0 umol/L (25-60) 10/27/17 15:54 Total Creatine Kinase 70 units/L (55-170) 10/27/17 Unknown CK-MB (CK-2) 2.2 ng/mL (0.0-4.0) 10/27/17 Unknown CK-MB (CK-2) Rel Index 3.1 (0-4) 10/27/17 Unknown Troponin T < 0.010 ng/mL (0.00-0.029) 10/27/17 Unknown Total Protein 8.2 g/dL (6.3-8.2) 10/28/17 04:16 Albumin 3.8 g/dL (3.9-5) L 10/28/17 04:16 Albumin/Globulin Ratio 0.9 % 10/28/17 04:16 Triglycerides 73 mg/dL (2-149) 10/28/17 04:16 Cholesterol 168 mg/dL (50-199) 10/28/17 04:16 LDL Cholesterol Direct 106 mg/dL (50-130) 10/28/17 04:16 HDL Cholesterol 56 mg/dL (40-59) 10/28/17 04:16 Cholesterol/HDL Ratio 3.00 % 10/28/17 04:16 TSH 1.530 mlU/mL (0.270-4.200) 10/27/17 Unknown Free T4 1.22 ng/dL (0.76-1.46) 10/27/17 Unknown Plasma/Serum Alcohol < 0.01 % (0-0.07) 10/27/17 Unknown
[2017-10-29] MEDS: DUONEB *Not for PRN Use IH SCH ×3 (02:33→15:11)
[2017-10-29] MEDS: SODIUM CHLORIDE FLUSH SYRINGE 10 ML IV SCH (09:48)
[2017-10-29] MEDS: ELIQUIS PO SCH (09:48)
[2017-10-29] MEDS: ZESTRIL PO SCH (09:49)
[2017-10-29] MEDS: D5NS 1,000 ML IV SCH (09:50)
[2017-10-29 11:02] LABS: Blood Urea Nitrogen 17 mg/dL (9-20)
--- NOTE | 2017-10-29 12:39 | Discharge Summary ---
Providers - Providers Date of Admission: 10/27/17 23:06 Date of discharge: 10/29/17 Attending physician: HALLE LOVE 10/27/17 23:22 Occupational Therapy Evaluate and Treat [CONS] Routine Comment: Reason For Exam: Neuro deficits Physical Therapy Evaluation and Treat [CONS] Routine Comment: Reason For Exam: Neuro deficits Primary care physician: MANAGER ETL Hospitalization Condition: Fair Disposition: [id number]/[place]-03 SNF [facility] CERT Exam - Constitutional Vitals: Temp Pulse Resp BP Pulse Ox 97.9 F 71 18 129/69 100 10/29/17 11:34 10/29/17 11:34 10/29/17 11:34 10/29/17 11:34 10/29/17 11:34 Plan Activity: advance as tolerated Diet: low fat, low cholesterol, low salt Additional Instructions: 1.Follow up by Physician at SNF in 2-3 days Follow up with: PRIMARY CAREMD [Primary Care Provider] - 7 Days
[2017-10-29 17:00] VITALS: BP 121/67
== END 2017-10-29 18:00 | DRG 69 ==
LOC: ED 15:18 → 4A 23:06
PROVIDERS: ADMIT Internal Medicine; ATTEND Internal Medicine
PROC: 4A033R1 Measurement of Arterial Saturation, Peripheral, Percutaneous Approach (ICD-10-PCS; principal; 2017-10-27)
DX: G45.9 Transient cerebral ischemic attack, unspecified (principal); K58.9 Irritable bowel syndrome, unspecified; F41.1 Generalized anxiety disorder; I10 Essential (primary) hypertension; I25.10 Atherosclerotic heart disease of native coronary artery without angina pectoris; I48.91 Unspecified atrial fibrillation; J44.9 Chronic obstructive pulmonary disease, unspecified; F10.21 Alcohol dependence, in remission; Z86.718 Personal history of other venous thrombosis and embolism; Z79.899 Other long term (current) drug therapy; Z82.49 Family history of ischemic heart disease and other diseases of the circulatory system; R29.703 NIHSS score 3
CPT/HCPCS: 36415; 70450; 70544; 70551; 80053; 80061; 80320; 82140; 82550; 82553; 82565; 82803; 83036; 84439; 84443; 84484; 84520; 85007; 85025; 85610; 85670; 85730; 93005; 93010; 93306; 93880; 94640; 94760; A9270-GY; G0480; J7042

== ENCOUNTER 2017-12-14 08:55 | Emergency (ER) | payer MEDICARE | END 2017-12-14 12:35 | LOC: ED 09:12 | DX: I46.9 Cardiac arrest, cause unspecified (principal) | CPT/HCPCS: 99285 ==